=== PATIENT | male | born 1960 ===

== ENCOUNTER 2020-05-19 10:37 | Outpatient (REF) | payer BC, SELFPAY ==
[2020-05-19 12:22] LABS: Blood Urea Nitrogen 22 mg/dL (9-16); Cholesterol 201 mg/dL; Estimated Glomerular Filt Rate > 60; Glucose Fasting 96 mg/dL (60-99); HDL Cholesterol 49 mg/dL; LDL Cholesterol Calculated 127 mg/dl; Triglycerides 128 mg/dL
[2020-05-19 12:48] LABS: Estimated Average Glucose 111 mg/dL; Hemoglobin A1c % 5.5 %
[2020-05-19 13:16] LABS: Reflex LDLD? No
== END 2020-05-19 10:38 | disposition home or self-care (01) ==
LOC: HO.LNP 10:37
PROVIDERS: Visit Provider Internal Medicine
DX: R79.89 Other specified abnormal findings of blood chemistry (principal); R73.03 Prediabetes; I70.0 Atherosclerosis of aorta
CPT/HCPCS: 80061; 82565; 82947; 83036; 84520

== ENCOUNTER 2020-05-19 10:37 | Outpatient (REF) | payer BC, SELFPAY | END 2020-05-19 10:38 | disposition home or self-care (01) | LOC: HO.LNP 10:37 | PROVIDERS: PCP Internal Medicine; Visit Provider Internal Medicine | DX: Z13.89 Encounter for screening for other disorder (principal) ==

== ENCOUNTER 2020-11-17 10:39 | Outpatient (REF) | payer BC, SELFPAY ==
[2020-11-17 10:44] LABS: MANUAL DIFF FLAG NO
[2020-11-17 10:54] LABS: Basophils Percent Auto 0.4 % (0-2); Eosinophils Absolute Auto 0.1 X10*3/uL (0.0-0.4); Eosinophils Percent Auto 1.6 % (0-4); Hematocrit 46.7 % (42-52); Hemoglobin 15.2 g/dl (14.0-18.0); Imm Gran Abs Auto 0.02 X10*3/uL (0.00-0.03); Imm Gran Pct Auto 0.3 % (0.0-0.4); Lymphocytes Absolute Auto 2.4 X10*3/uL (1.2-4.9); Lymphocytes Percent Auto 34.1 % (20-40); Mean Corpuscular HGB Conc 32.5 g/dl (31.0-36.0); Mean Corpuscular Volume 89.1 fL (80-98); Mean Platelet Volume 10.9 fL (9.4-12.4); Monocytes Absolute Auto 0.6 X10*3/uL (0.1-1.2); Monocytes Percent Auto 8.1 % (2-11); Neutrophils Absolute Auto 3.9 X10*3/uL (2.0-8.3); Neutrophils Percent Auto 55.5 % (45-73); Platelet Count 235 X10*3/uL (160-400); Red Blood Count 5.24 X10*6/uL (4.60-5.80)
[2020-11-17 11:18] LABS: Appearance Urine CLEAR; Color Urine YELLOW; Glucose Urine UA NEG (NEG); Leukocyte Esterase Urine NEG (NEG); Nitrite Urine NEG (NEG); Specific Gravity - Urine 1.025 (1.005-1.025); Urine Blood TRACE (NEG); Urine Ketones NEG (NEG); Urine Protein NEG (NEG-TRACE)
[2020-11-17 11:34] LABS: Alanine Aminotransferase 23 U/L (0-40); Albumin Level 4.5 g/dL (3.5-5.0); Alkaline Phosphatase 53 U/L (39-117); Anion Gap 13 (12-20); Aspartate Amino Transferase 20 U/L (5-37); Bilirubin Total 0.7 mg/dL (0.0-1.0); Blood Urea Nitrogen 30 mg/dL (9-16); Calcium 9.4 mg/dL (8.4-10.2); Carbon Dioxide 26 mmol/L (22-29); Chloride 105 mmol/L (96-108); Cholesterol 222 mg/dL; Estimated Glomerular Filt Rate 54; Glucose Fasting 101 mg/dL (60-99); HDL Cholesterol 51 mg/dL; LDL Cholesterol Calculated 151 mg/dl; Potassium 4.1 mmol/L (3.3-5.1); Sodium 140 mmol/L (135-145); Total Protein 6.9 g/dL (6.5-8.0); Triglycerides 102 mg/dL
[2020-11-17 11:48] LABS: Estimated Average Glucose 114 mg/dL; Hemoglobin A1c % 5.6 %
[2020-11-17 11:57] LABS: Creatinine Urine 223.88 mg/dL
[2020-11-17 12:13] LABS: RBC Urine 0-2 /HPF (0); WBC Urine 0-2 /HPF (0-4)
[2020-11-17 12:25] LABS: Reflex LDLD? No
[2020-11-17 12:40] LABS: PSA,Total (Free>4and<10) 2.02 ng/mL (0.00-4.00)
== END 2020-11-17 10:40 | disposition home or self-care (01) ==
LOC: HO.LNP 10:39
PROVIDERS: Visit Provider Internal Medicine
DX: Z00.00 Encounter for general adult medical examination without abnormal findings (principal); Z12.5 Encounter for screening for malignant neoplasm of prostate; I10 Essential (primary) hypertension; R73.03 Prediabetes
CPT/HCPCS: 80053; 80061; 81001; 81003; 82043; 83036; 84153; 85025

== ENCOUNTER 2021-01-26 10:47 | Outpatient (REF) | payer BC, SELFPAY ==
[2021-01-26 11:23] LABS: Blood Urea Nitrogen 24 mg/dL (9-16); Estimated Glomerular Filt Rate 57
== END 2021-01-26 10:48 | disposition home or self-care (01) ==
LOC: HO.LNP 10:47
PROVIDERS: PCP Internal Medicine; Visit Provider Internal Medicine
DX: R79.9 Abnormal finding of blood chemistry, unspecified (principal)
CPT/HCPCS: 82565; 84520

== ENCOUNTER 2021-05-03 10:42 | Outpatient (REF) | payer BC, SELFPAY ==
[2021-05-03 11:02] LABS: Blood Urea Nitrogen 22 mg/dL (9-16); Estimated Glomerular Filt Rate 59
== END 2021-05-03 10:43 | disposition home or self-care (01) ==
LOC: HO.LNP 10:42
PROVIDERS: Visit Provider Internal Medicine
DX: R79.89 Other specified abnormal findings of blood chemistry (principal)
CPT/HCPCS: 82565; 84520

== ENCOUNTER 2021-11-29 11:59 | Outpatient (REF) | payer BC, SELFPAY ==
[2021-11-29 12:03] LABS: MANUAL DIFF FLAG NO
[2021-11-29 12:30] LABS: Basophils Percent Auto 0.5 % (0-2); Eosinophils Absolute Auto 0.2 X10*3/uL (0.0-0.4); Hematocrit 45.2 % (42.0-52.0); Hemoglobin 14.8 g/dl (14.0-18.0); Imm Gran Abs Auto 0.03 X10*3/uL (0.00-0.03); Imm Gran Pct Auto 0.4 % (0.0-0.4); Lymphocytes Absolute Auto 2.7 X10*3/uL (1.2-4.9); Lymphocytes Percent Auto 36.4 % (20-40); Mean Corpuscular HGB Conc 32.7 g/dl (31.0-36.0); Mean Corpuscular Hemoglobin 29.2 pg (27.0-33.0); Mean Corpuscular Volume 89.2 fL (80.0-98.0); Monocytes Absolute Auto 0.7 X10*3/uL (0.1-1.2); Monocytes Percent Auto 9.2 % (2-11); Neutrophils Absolute Auto 3.9 x10*3/uL (2.0-8.3); Neutrophils Percent Auto 51.5 % (45-73); Platelet Count 224 X10*3/uL (160-400); Red Blood Count 5.07 X10*6/uL (4.60-5.80); Red Cell Distribution Width 12.6 % (11.0-16.0); White Blood Count 7.5 X10*3/uL (4.8-10.8)
[2021-11-29 12:33] LABS: Appearance Urine Clear; Color Urine Yellow; Glucose Urine UA Negative (Negative); Leukocyte Esterase Urine Negative (Negative); Nitrite Urine Negative (Negative); Urine Blood Negative (Negative); Urine Ketones Negative (Negative); Urine Protein Trace mg/dL (Neg-Trace)
[2021-11-29 12:41] LABS: Alanine Aminotransferase 28 U/L (0-40); Albumin Level 4.4 g/dL (3.5-5.0); Alkaline Phosphatase 55 U/L (39-117); Anion Gap 16 (12-20); Aspartate Amino Transferase 25 U/L (5-37); Bilirubin Total 0.4 mg/dL (0.0-1.0); Blood Urea Nitrogen 31 mg/dL (9-16); Carbon Dioxide 24 mmol/L (22-29); Chloride 105 mmol/L (96-108); Cholesterol 198 mg/dL; Estimated Glomerular Filt Rate 58; Glucose Fasting 106 mg/dL (60-99); HDL Cholesterol 52 mg/dL; LDL Cholesterol Calculated 126 mg/dl; Potassium 4.1 mmol/L (3.3-5.1); Sodium 141 mmol/L (135-145); Triglycerides 101 mg/dL
[2021-11-29 12:42] LABS: Bacteria Urine None Seen (None Seen); Hyaline Casts Urine 0-2 /LPF (0-2); RBC Urine 0-2 /HPF (0-2); Squamous Epithelial Cell Urine 0-2 /HPF (0-2); WBC Urine 0-5 /HPF (0-5)
[2021-11-29 12:47] LABS: Estimated Average Glucose 117 mg/dL; Hemoglobin A1c % 5.7 %
[2021-11-29 13:53] LABS: Creatinine Urine 135.29 mg/dL; Microalbum/Creatinine Ratio Ur 13.3 ug/mg cr
== END 2021-11-29 12:00 | disposition home or self-care (01) ==
LOC: HO.LNP 11:59
PROVIDERS: Visit Provider Internal Medicine
DX: Z00.00 Encounter for general adult medical examination without abnormal findings (principal); Z12.5 Encounter for screening for malignant neoplasm of prostate; I10 Essential (primary) hypertension; R73.03 Prediabetes; I70.0 Atherosclerosis of aorta
CPT/HCPCS: 80053; 80061; 81001; 82043; 83036; 84153; 85025

== ENCOUNTER 2022-01-06 10:19 | Outpatient (REF) | payer BC, SELFPAY ==
[2022-01-06 10:44] LABS: Blood Urea Nitrogen 21 mg/dL (9-16); Estimated Glomerular Filt Rate > 60
== END 2022-01-06 10:20 | disposition home or self-care (01) ==
LOC: HO.LNP 10:19
PROVIDERS: Visit Provider Internal Medicine
DX: R79.9 Abnormal finding of blood chemistry, unspecified (principal)
CPT/HCPCS: 82565; 84520

== ENCOUNTER 2022-03-11 10:22 | Outpatient (REF) | payer BC, SELFPAY ==
[2022-03-11 11:10] LABS: Estimated Average Glucose 123 mg/dL; Hemoglobin A1c % 5.9 %
[2022-03-11 11:46] LABS: Alanine Aminotransferase 31 U/L (0-40); Albumin Level 4.4 g/dL (3.5-5.0); Alkaline Phosphatase 59 U/L (39-117); Aspartate Amino Transferase 22 U/L (5-37); Bilirubin Direct 0.2 mg/dL (0.0-0.5); Bilirubin Total 0.7 mg/dL (0.0-1.0); Cholesterol 146 mg/dL; Glucose Fasting 104 mg/dL (60-99); HDL Cholesterol 49 mg/dL; LDL Cholesterol Calculated 81 mg/dl; Triglycerides 81 mg/dL
== END 2022-03-11 10:23 | disposition home or self-care (01) ==
LOC: HO.LNP 10:22
PROVIDERS: PCP Internal Medicine; Visit Provider Internal Medicine
DX: R73.09 Other abnormal glucose (principal); I70.0 Atherosclerosis of aorta
CPT/HCPCS: 80061; 80076; 82947; 83036

== ENCOUNTER 2022-12-06 11:02 | Outpatient (REF) | payer BC, SELFPAY | END 2022-12-06 11:03 | disposition home or self-care (01) | LOC: HO.LNP 11:02 | PROVIDERS: Visit Provider Internal Medicine | DX: Z00.00 Encounter for general adult medical examination without abnormal findings (principal); I10 Essential (primary) hypertension; R73.03 Prediabetes; I70.0 Atherosclerosis of aorta; Z12.5 Encounter for screening for malignant neoplasm of prostate | CPT/HCPCS: 80053; 80061; 81001; 82043; 82570; 83036; 84153; 85025 ==

== ENCOUNTER 2023-02-10 10:56 | Outpatient (REF) | payer BC, SELFPAY ==
[2023-02-10 11:18] LABS: Blood Urea Nitrogen 28 mg/dL (9-16)
== END 2023-02-10 10:57 | disposition home or self-care (01) ==
LOC: HO.LNP 10:56
PROVIDERS: Visit Provider Internal Medicine
DX: R79.9 Abnormal finding of blood chemistry, unspecified (principal)
CPT/HCPCS: 84520

== ENCOUNTER 2023-04-14 08:40 | Outpatient (REF) | payer BC, SELFPAY ==
[2023-04-14 09:48] LABS: Blood Urea Nitrogen 23 mg/dL (9-16); Estimated Glomerular Filt Rate > 60
== END 2023-04-14 08:41 | disposition home or self-care (01) ==
LOC: HO.LAB 08:40
PROVIDERS: PCP Internal Medicine; Visit Provider Internal Medicine
DX: R79.9 Abnormal finding of blood chemistry, unspecified (principal)
CPT/HCPCS: 36415; 82565; 84520

== ENCOUNTER 2023-12-12 10:53 | Outpatient (REF) | payer BC, SELFPAY ==
[2023-12-12 10:58] LABS: MANUAL DIFF FLAG NO
[2023-12-12 11:04] LABS: Appearance Urine Clear; Basophils Percent Auto 0.3 % (0-2); Color Urine Yellow; Eosinophils Absolute Auto 0.2 X10*3/uL (0.0-0.4); Eosinophils Percent Auto 2.4 % (0-4); Glucose Urine UA Negative (Negative); Hematocrit 43.6 % (42.0-52.0); Hemoglobin 14.4 g/dl (14.0-18.0); Imm Gran Abs Auto 0.02 X10*3/uL (0.00-0.03); Imm Gran Pct Auto 0.3 % (0.0-0.4); Leukocyte Esterase Urine Negative (Negative); Lymphocytes Absolute Auto 2.2 X10*3/uL (1.2-4.9); Lymphocytes Percent Auto 29.3 % (20-40); Mean Corpuscular Hemoglobin 29.3 pg (27.0-33.0); Mean Corpuscular Volume 88.8 fL (80.0-98.0); Mean Platelet Volume 10.7 fL (9.4-12.4); Monocytes Absolute Auto 0.6 X10*3/uL (0.1-1.2); Monocytes Percent Auto 7.6 % (2-11); Neutrophils Absolute Auto 4.5 x10*3/uL (2.0-8.3); Neutrophils Percent Auto 60.1 % (45-73); Nitrite Urine Negative (Negative); PH 5.5 (5.0-9.0); Platelet Count 210 X10*3/uL (160-400); Red Blood Count 4.91 X10*6/uL (4.60-5.80); Red Cell Distribution Width 12.5 % (11.0-16.0); Urine Blood Negative (Negative); Urine Ketones Negative (Negative); Urine Protein Trace mg/dL (Neg-Trace); White Blood Count 7.5 X10*3/uL (4.8-10.8)
[2023-12-12 11:07] LABS: Bacteria Urine None Seen (None Seen); Hyaline Casts Urine 0-2 /LPF (0-2); RBC Urine 0-2 /HPF (0-2); Squamous Epithelial Cell Urine 0-2 /HPF (0-2); WBC Urine 0-5 /HPF (0-5)
[2023-12-12 11:21] LABS: Estimated Average Glucose 114 mg/dL; Hemoglobin A1C 139.2424 umol/L; Hemoglobin A1c % 5.6 % (<6.0); Total Hemoglobin (HGBA1C) 3713.7977 umol/L
[2023-12-12 11:44] LABS: Alanine Aminotransferase 30 U/L (0-40); Albumin Level 4.3 g/dL (3.5-5.0); Alkaline Phosphatase 51 U/L (39-117); Anion Gap 10 (12-20); Aspartate Amino Transferase 25 U/L (5-37); Bilirubin Total 0.6 mg/dL (0.0-1.0); Blood Urea Nitrogen 25 mg/dL (9-16); Calcium 9.3 mg/dL (8.4-10.2); Carbon Dioxide 29 mmol/L (22-29); Chloride 106 mmol/L (96-108); Cholesterol 203 mg/dL (<200); Estimated Glomerular Filt Rate 55; Glucose Fasting 106 mg/dL (60-99); HDL Cholesterol 52 mg/dL (>40); LDL Cholesterol Calculated 132 mg/dL (<100); Potassium 4.2 mmol/L (3.3-5.1); Sodium 141 mmol/L (135-145); Triglycerides 99 mg/dL (<150)
[2023-12-12 12:17] LABS: Creatinine Urine 176.07 mg/dL; Microalbum/Creatinine Ratio Ur 46.5 ug/mg cr (<30)
== END 2023-12-12 10:54 | disposition home or self-care (01) ==
LOC: HO.LNP 10:53
PROVIDERS: Visit Provider Internal Medicine
DX: Z00.00 Encounter for general adult medical examination without abnormal findings (principal); I10 Essential (primary) hypertension; R73.09 Other abnormal glucose; Z12.5 Encounter for screening for malignant neoplasm of prostate
CPT/HCPCS: 80053; 80061; 81001; 82043; 82570; 83036; 84153; 85025

== ENCOUNTER 2024-01-09 10:23 | Outpatient (REF) | payer BC, SELFPAY ==
--- NOTE | ~2024-01-09 | US_ITS ---
EXAMINATION: US EXTRACRANIAL CAROTID DUPLEX, BILATERAL CLINICAL INFORMATION: Aortic atherosclerosis COMPARISON: None available. TECHNIQUE: Real-time ultrasound and Doppler techniques (integrating B-mode 2-D vascular images, Doppler spectral analysis and color-flow Doppler imaging) were utilized to interrogate the extracranial carotid arteries, the vertebral arteries and proximal subclavian arteries bilaterally. The degree of stenosis is determined by criteria similar to NASCET. FINDINGS: Right Side: 1. There is no significant atherosclerotic plaque seen in the bifurcation/proximal ICA region. 2. The common carotid artery PSV proximally is 102 cm/s and distally 96 cm/s. 3. The proximal internal carotid artery velocities are 65.2 cm/s systolic and 26.1 cm/s diastolic. 4. The proximal external carotid artery PSV is 95.3 cm/s. 5. The vertebral artery shows antegrade flow. 6. The subclavian artery waveforms are normal. Left Side: 1. There is no significant atherosclerotic plaque seen in the bifurcation/proximal ICA region. 2. The common carotid artery PSV proximally is 136 cm/s and distally 91.7 cm/s. 3. The proximal internal carotid artery velocities are 73.0 cm/s systolic and 25.8 cm/s diastolic. 4. The proximal external carotid artery PSV is 98.1 cm/s. 5. The vertebral artery shows antegrade flow. 6. The subclavian artery waveforms are normal. US/US carotid duplex BI IMPRESSION: 1. RIGHT: Normal right internal carotid artery without atherosclerotic plaque or hemodynamically significant stenosis. 2. LEFT: Normal left internal carotid artery without atherosclerotic plaque or hemodynamically significant stenosis. Electronically signed by: Sy Dumont MD 02/01/2024 03:52 PM EST
== END 2024-01-09 10:24 | disposition home or self-care (01) ==
LOC: HO.US 10:23
PROVIDERS: PCP Internal Medicine; Visit Provider Internal Medicine
DX: I70.0 Atherosclerosis of aorta (principal)
CPT/HCPCS: 93880

== ENCOUNTER 2024-05-02 14:55 | Outpatient (REF) | payer BC, SELFPAY ==
--- OUTSIDE RECORDS SUMMARY | 2024-05-02 19:31 | XMS_ITS | Patient Health Record ---
Author Organization [facility] Address [address] [place] [address] Care Team Providers Care Architecture Consultant Name Role Phone Alexandrea LOMELI, Selwyn Primary Care Provider Jany Chaudhari Unavailable [phone] Elias Partida Unavailable [phone] Allergies No Known Allergies Results Component Value Reference Range Notes X ray : Foot, right 3V Reviewed date:02/14/2024 05:57:28 PM Interpretation:See Examination above Performing Lab: Notes/Report: See Examination above Reason For Referral Diagnosis 1 Other viral warts (B 07.8) Diagnosis 2 Pain in right foot ( M79.671) Referring Provider First Name Selwyn Referring Provider Last Name Alexandrea [facility] Referred Provider Elias Partida Referred Address [address] [place], [place],[address], Referred Provider Specialty Podiatry Referral Priority Routine Diagnosis 1 Gout of right foot ( M10.9) Diagnosis 2 Essential hypertensi on (I10) Diagnosis 3 Plantar flexed metat arsal bone of left foot (M21.6X2) Diagnosis 4 Arthritis (M19.90) Diagnosis 5 Other viral warts (B 07.8) Diagnosis 6 Pain in right foot ( M79.671) Diagnosis 7 Pain in left ankle a nd joints of left foot (M25.572) Diagnosis 8 Pain in joint involv ing right ankle and foot (M25.571) Diagnosis 9 Bursitis of intermet atarsal bursa of left foot (M77.52) Diagnosis 10 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) Referring Provider First Name Selwyn Referring Provider Last Name Alexandrea Referred Organization [facility] Referred Provider Jany Nolasco Referred Address [address] [facility] [place],[address],[place] Referred Provider Specialty Podiatry Referral Priority Routine Medications Medication SIG (Take, Route, Frequency, Duration) Notes Start Date End Date Status Atorvastatin Calcium Active Valsartan-hydroCHLOROthiazi de 160-12.5 MG (Prior Auth#:[id number]) Oral for 30 Unknown Valsartan Active Carvedilol Active Atorvastatin Calcium Active Valsartan-hydroCHLOROthiazi de 320-12.5 MG 1 tablet Orally Once a day Active Carvedilol Active Social History Tobacco Use: Social History Observation Description Date Details (start date - stop date) Never Smoker NA - NA Tobacco Use/Smoking Question Answer Notes Are you a: nonsmoker Additional Findings: Tobacco Non-User Current no n-smoker Alcohol Screen Question Answer Notes Did you have a drink containing alcohol in the p ast year? Yes Points 0 Interpretation Negative Tobacco use other than smoking: Question Answer Notes Are you an other tobacco user? No Problems Problem Type SNOMED Code ICD Code Onset Dates Problem Status W/U Status Risk Notes Problem 6066687 Arthritis (M19.90) Active confirmed Problem 789690849 Plantar flexed metatarsal bone of left foot (M21.6X2) Active confirmed Problem Gout (62191739) Gout of right foot (M10.9) Active confirmed Rx drug management (4) Problem Essential hypertension (88664225) Essential hypertension (I10) Active confirmed Vital Signs Blood pressure diastolic 70 mm Hg 04/04/2024 Height 0xr57aj in 04/04/2024 Blood pressure systolic 122 mm Hg 04/04/2024 Weight 224 lbs 04/04/2024 BMI 31.24 kg/m2 04/04/2024 Procedures Procedure Date Ordered Date Performed Result Body Sit e , R4224-OQHHX/INJECT, JOINT/BURSA 03/12/2024 N/A Encounters Encounter Location Date Provider Diagnosis [address] [place] [id number] 02/14/2024 Jany Nolasco Pain in joint involving right ankle and foot M25.571 ; Gout of right foot M10.9 ; Pain in joint involving left ankle and foot M25.572 and Closed fracture of sesamoid bone of right foot, initial encounter S92.811A [facility] [address] 03/12/2024 Jany Black Pain in left ankle a nd joints of left foot M25.572 ; Arthritis M19.90 ; Plantar flexed metatarsal bone of left foot M21.6X2 ; 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 M1A.0720 and Bursitis of intermetatarsal bursa of left foot M77.[address] [facility] [address] 04/04/2024 Jany Black Pain in left ankle a nd joints of left foot M25.572 ; Arthritis M19.90 ; Plantar flexed metatarsal bone of left foot M21.6X2 ; 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 M1A.0720 and Bursitis of intermetatarsal bursa of left foot M77.[address] [address] 02/12/2024 Elias Partida [facility] [address] [address] 03/12/2024 Jany Black [address] [address] 03/12/2024 Jany Black Assessments Encounter Date Diagnosis (ICD Code) Assessment Notes Treatment Notes Treatment Clinical Notes Section Notes 02/14/2024 Gout of right foot (ICD-10 - M10.9) Rx drug management (4) Patient Educated with: GOUT.pdf (GOUT.pdf) Patient Educated with: LOW PURINE DIET.pdf (LOW PURINE DIET.pdf) 02/14/2024 Pain in joint involving right ankle and foot (ICD-10 - M25.571) 03/12/2024 Pain in left ankle and joints of left foot (ICD-10 - M25.572) b 03/12/2024 Arthritis (ICD-10 - M19.90) b 04/04/2024 Pain in left ankle and joints of left foot (ICD-10 - M25.572) 04/04/2024 Arthritis (ICD-10 - M19.90) 03/12/2024 Plantar flexed metatarsal bone of left foot (ICD-10 - M21.6X2) b 02/14/2024 Pain in joint involving left ankle and foot (ICD-10 - M25.572) 02/14/2024 Closed fracture of sesamoid bone of right foot, initial encounter (ICD-10 - S92.811A) 04/04/2024 Plantar flexed metatarsal bone of left foot (ICD-10 - M21.6X2) 03/12/2024 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 (ICD-10 - M1A.0720) b 04/04/2024 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 (ICD-10 - M1A.0720) 03/12/2024 Bursitis of intermetatarsal bursa of left foot (ICD-10 - M77.52) Patient Educated with: RICE THERAPY.pdf (RICE THERAPY.pdf) b 04/04/2024 Bursitis of intermetatarsal bursa of left foot (ICD-10 - M77.52) 02/14/2024 Other 03/12/2024 Other b Plan Of Treatment Pending Test Test Name Order Date , T1369-IHAJU/INJECT, JOINT/BURSA 0 03/12/2024 Insurance Providers Payer Name Payer Address Payer Phone Subscriber Number Group Number Insured Name Patient Relationship to Insured Coverage Start Date Coverage End Date [facility] [address] [place] [address] [phone] [id number] Gilson Osei Self - patient is the insured Medical (General) History Medical History History ICD Code High blood pressure Warts Measles Mumps Chicken pox Joint implants/screws covid-19 screws in wrist Surgical History Surgery Date(Month/Year) wrist surgery 1999 knee surgery 2011
--- OUTSIDE RECORDS SUMMARY | 2024-05-02 19:32 | XMS_ITS ---
Author Organization [facility] Address [address] [place] [address] Care Team Providers Care Fire Extinguisher Repairer Inspector Name Role Phone Selwyn Lechuga MD Primary Care Provider Nishi Nolasco, Jany Unavailable [phone] Allergies No Known Allergies REASON FOR VISIT Pcp-03/23, Foot pain Medications Medication SIG (Take, Route, Frequency, Duration) Notes Start Date End Date Status Atorvastatin Calcium Active Valsartan-hydroCHLOROthiazi de 160-12.5 MG (Prior Auth#:[id number]) Oral for 30 Unknown Atorvastatin Calcium Active Valsartan-hydroCHLOROthiazi de 320-12.5 MG 1 tablet Orally Once a day Active Carvedilol Active Valsartan Active Carvedilol Active Social History Tobacco Use: Social History Observation Description Date Details (start date - stop date) Never Smoker NA - NA Tobacco Use/Smoking Question Answer Notes Are you a: nonsmoker Additional Findings: Tobacco Non-User Current no n-smoker Tobacco use other than smoking: Question Answer Notes Are you an other tobacco user? 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 M1A.0720 and Bursitis of intermetatarsal bursa of left foot M77.52 Assessments Encounter Date Diagnosis (ICD Code) Assessment Notes Treatment Notes Treatment Clinical Notes Section Notes 04/04/2024 Pain in left ankle and joints of left foot (ICD-10 - M25.572) 04/04/2024 Arthritis (ICD-10 - M19.90) 04/04/2024 Plantar flexed metatarsal bone of left foot (ICD-10 - M21.6X2) 04/04/2024 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 (ICD-10 - M1A.0720) 04/04/2024 Bursitis of intermetatarsal bursa of left foot (ICD-10 - M77.52) Plan Of Treatment Next Appt Details Follow Up: prn, Reason: Progress Notes * Gilson MCPHERSON CDOB: (63 yo M)Acc No.[id number]:04/04/2024 Progress Notes Patient:?SARAYAKILGilson Provider:?Jany Nolasco DPM :1960???Age:63 Y???Sex:Male Jose Maria e:04/04/2024 Address:[address] [place], [place] [id number] Pcp:Selwyn Lechuga MD Subjective: * Chief Complaints: * ???Pcp-03/23Foot pain * HPI: ???Foot Pain:?Nature:?aching, swelling, tenderness, throbbing.?Location:?, LEFT.?Duration:?2 month.?Onset:?sudden, unknown, denies trauma.?Course:?, improved, at 90 %.?Aggravated:?any pressure.?Treatments:?Rest/alter normal daily activity, 800mg Motrin, prednisone x 5 days, then 7 days, cortisone injection (1L).? * ROS:?General/Constitutional:?Nausea?denies.?Vomiting?denies.?Hunger Thirst?denies.?Loss appetite?denies.?Chills?denies.?Fatigue?denies.?Fever?denies.?Night Sweats?denies.?Unexplained weight loss?denies.?Unexplained weight gain?denies.?HEENTM:?Dentures?denies.?Dizziness?denies.?Glasses/contacts?denies.?Retinopathy?de nies.?Blurred/double vision?denies.?TMJ?denies.?Discharge/drainage?denies.?Implants?denies.?Sore throat?denies.?Dental implants?denies.?Hard of hearing ?denies.?Difficulty chewing/swallowing/speaking?denies.?Nose bleeds?denies.?Sore mouth?denies.?Respiratory:?On Oxygen?denies.?Pneumonia/pleurisy?denies.?Bronchitis?denies.?Emphysema?denies.?C oughing?denies.?Cough blood?denies.?Shortness of breath?denies.?Wheezing?denies.?Cardiovascular:?Pacemaker?denies.?MVP?denies.?WPW?denies.?CHF?denies.?Heart attack?denies.?Septal defect?denies.?Rapid beat?denies.?Chest pain ?denies.?Atrial Fib.?denies.?Murmur/Palpitations?denies.?Gastrointestinal:?Hemorrhoids?denies.?Stomach/Abdominal pain?denies.?Dark blood stool?denies.?Irritable bowel ?denies.?Constipation?denies.?Diarrhea?denies.?Hematology:?Swelling?denies.?Clots?denies.?Varicose Veins?denies.?Bruising?denies.?Bleeding problem?denies.?Genitourinary:?Blood urine?denies.?Frequent/Painfu/urination/bladder control?denies.?Kidney stones?denies.?Infection (UTI)?denies.?Nephropathy?denies.?sex trans dis (STD)?denies.?Prostate?denies.?Musculoskeletal:?Hammertoes?denies.?Bunions?denies.?Back Pain?denies.?Muscle Cramps/ Resting?denies.?Muscle cramps / walking?denies.?Generalized aches and pains?denies.?Weakness?denies.?Integ.:?Bello?denies.?Scars?denies.?Corns/calluses?denies.?Ingrown nails?denies.?Painful nails?denies.?Open Sores?denies.?Rashes?denies.?Neurologic:?Difficulty sleeping?denies.?Brain disorder?denies.?Numbness?denies.?Balance trouble?denies.?Confusion?denies.?Fainting/blackouts?denies.?Tingling?denies.?Tr emors?denies.? * Medical History:? * Surgical History:?wrist surg parul 2000knee surgery 2012 * Hospitalization/Major Diagno stic Procedure:?Denies Past Hospitalization * Family History:?Mother: dece ased, diagnosed with Diabetic - NIDDM, Unspecified essential hypertension.?Father: alive, diagnosed with Unspecified essential hypertension.? * Social History:?Tobacco Use:?Tobacco Use/Smoking?Are you a:?nonsmoker ?Additional Findings: Tobacco Non-User?Current non-smoker ?Tobacco use other than smoking?Are you an other tobacco user??No ???Miscellaneous:?Caffeine: yes, frequency:. ?Children: yes, 2. ?Exercise: no. ?Marital status: . 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 * Medications:?TakingValsartan -hydroCHLOROthiazide 320-12.5 MG Tablet 1 tablet Orally Once a day Carvedilol Atorvastatin Calcium Valsartan Carvedilol Atorvastatin Calcium Taking Valsartan-hydroCHLOROthiazide 320-12.5 MG Tablet 1 tablet Orally Once a day Taking Carvedilol Taking Atorvastatin Calcium Taking Valsartan Taking Carvedilol Taking Atorvastatin Calcium UnknownValsartan-hydroCHLOROthiazide 160-12.5 MG Tablet (Prior Auth#:[id number]) Oral Medication List reviewed and reconciled with the patientUnknown Valsartan-hydroCHLOROthiazide 160-12.5 MG Tablet (Prior Auth#:[id number]) Oral Medication List reviewed and reconciled with the patient * Allergies:?N.K.D.A.yes[Aller gies Verified] Objective: * Vitals:?Ht: 6py40nv, Wt:224, BMI:31.24, Shoe size: 10.5-11, BP:122/70mm Hg, Ht- cm: 180.34 cm, Wt-k.61 kg. * Examination: ???General Examination: ?GENERAL APPEARANCE:?Reveals a pleasant, alert, well nourished, well- developed, well hydrated individual, who demonstrates proper attention to hygiene/body habitus, and is in no acute distress, Pt serves as own historian for office visit today.?ORIENTED:?person, place, and time.?Orthopedic: ?MUSCLE STRENGTH:?5/5 all groups in a symmetrical fashion, B/L.?GAIT ABNORMALITY:? antalgic.?BUNION:? (+) Pain on palpation dorsal medial exosotosis?,mild??inflammation present, pain at end ROM no guarding noted (-) calor, AT 90 % less.?DIGITAL DEFORMITIES:?Digital contracture, PIPJ, 2-5 B/L, incompl-reducible with WB, or to push-up test, no over, nor underlapping.?FOOTWEAR:?innersoles show excessive wear at 1st MTPJ left.?Dermatologic: ?SKIN FINDINGS:?Skin shows sign(s) of,NO??inflammation (-) calor? (-)erythema.?Vascular: ?DP PULSES (B):?2/4, B/L.?PT PULSES (B):?2/4, B/L.?CAPILLARY FILL TIME:?immediate, all digits, B/L.?TROPHIC CONDITION-TEXTURE/ELASTICITY/TURGOR/HAIR GROWTH (B):?normal, B/L.?TEMPERTURE GRADIENT (C):?normal, warm to cool, proximal to distal, B/L, B/L.?PIGMENTATION:?normal, B/L.?EDEMA (C):?absent, B/L.?Neurological: ?SENSORY:?Neurological exam reveals intact sensorium, pain sensation normal, vibration sensation intact, pinprick sensation is normal in the lower extremities, Pt denies, anesthesia, burning, paresthesia, tingling, B/L.?TINEL'S COMPRESSION:?Negative tarsal tunnel, miguel pedis, and medial calcaneal nerves.? 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 Plan: * Treatment: * Procedure Codes:? * Preventive Medicine:? ??Counseling:?Discussion:?-12: Office or other outpatient visit for the evaluation and management of an established patient, which required a medically appropriate history and/or examination and STRAIGHTFORWARD level of MEDICAL DECISION MAKING, 1 SELF-LIMITED OR MINOR PROBLEM, MINIMAL- NO AMOUNT/COMPLEXITY OF DATA TO BE REVIEWED/ANALYZED, AND MINIMAL RISK OF COMPLICATION/MORBIDITY. The visit on the day of the encounter encompassed interpreting the data and educating the patient as to the nature of their condition, treatment options available according to their individual PMH, meds, allergies, and overall health/living conditions, as well as any potential risks or complications that may occur from a failure to adhere to, and participate in, the recommended course of therapy. The discussion included a complete verbal, and/or written explanation of the examination results, any x-rays taken, the proposed diagnosis, and outline of the treatment plan. A schedule for future care needs was also explained. The patient verbalized an understanding of the instructions at this time and agreed to be an active participant in their treatment. If the patient should think of any questions or concerns after the visit, I have encouraged the patient to call the office, Patients podiatric issue has improved, they should call the office with any future issues or concerns.? * Follow Up:?prn * Images: * Sign off status: Completed true * Provider:?Jany Nolasco DPM Date:?2024 Generated for Kacie paniagua/Junaid/Claude on:?05/02/2024 02:30 PM EST History and Physical Notes * HPI (History of Present Illness) Category Sub-Category Detail Notes Category Not es Foot Pain Nature: aching, swelling, tenderness , throbbing Location: , LEFT Duration: 2 month Onset: sudden, unknown, den ies trauma Course: , improved, at 90 % Aggravated: any pressure Treatments: Rest/alter normal da amaya activity, 800mg Motrin, prednisone x 5 days, then 7 days, cortisone injection (1L) Examination Category Sub-Category Detail Notes Category Not es Neurological SENSORY: Neurological exa m reveals intact sensorium, pain sensation normal, vibration sensation intact, pinprick sensation is normal in the lower extremities, Pt denies, anesthesia, burning, paresthesia, tingling, B/L TINEL'S COMPRESSION: Negative tarsal alex edith, miguel pedis, and medial calcaneal nerves Dermatologic SKIN FINDINGS: Skin shows sign( s) of,NO inflammation (-) calor (-)erythema Orthopedic GAIT ABNORMALITY: antalgic BUNION: (+) Pain on palpatio n dorsal medial exosotosis ,mild inflammation present, pain at end ROM no guarding noted (-) calor, AT 90 % less FOOTWEAR: innersoles show exce ssive wear at 1st MTPJ left DIGITAL DEFORMITIES: Digital contracture , PIPJ, 2-5 B/L, incompl-reducible with WB, or to push-up test, no over, nor underlapping MUSCLE STRENGTH: 5/5 all groups in a symmetrical fashion, B/L General Examination GENERAL APPEARANCE: Reveals a pleasant, alert, well nourished, well-developed, well hydrated individual, who demonstrates proper attention to hygiene/body habitus, and is in no acute distress, Pt serves as own historian for office visit today ORIENTED: person, place, and t kristie Vascular DP PULSES (B): 2/4, B/L PT PULSES (B): 2/4, B/L CAPILLARY FILL TIME: immediate, all digi ts, B/L TEMPERTURE GRADIENT (C): normal, warm to cool, proximal to distal, B/L, B/L TROPHIC CONDITION-TEXTURE/ELASTICITY/TURGOR/HAIR GROWTH (B): normal, B/L EDEMA (C): absent, B/L PIGMENTATION: normal, B/L
--- OUTSIDE RECORDS SUMMARY | 2024-05-02 19:32 | XMS_ITS ---
Author Organization Selwyn Lechuga MD Address [address] [place] [phone] Care Team Providers Care Web Development Director Name Role Phone Selwyn Lechuga Primary Care Provider REASON FOR VISIT ins referral Encounters Encounter Location Date Provider Diagnosis Selwyn Lechuga MD [address] [facility] [address] [place] [phone] 03/12/2024 Selwyn Lechuga Plan Of Treatment Next Appt Details Provider Name:Selwyn Coley ier, 06/18/2024 07:15:00 AM, [address] [place] [address], [address] [place] [address], [phone], Provider Name:Selwyn Coley ier, 06/25/2024 09:00:00 AM, [address] [place] [address], [address], [phone], Provider Name:Selwyn stephens, 12/12/2024 07:00:00 AM, [address] [place] [address], [address], [phone], Provider Name:Selwyn stephens, 12/19/2024 08:00:00 AM, [address], [address], [place], [place], [phone], Progress Notes * SARAYAKILGilson CDOB: (63 yo M)Acc No.[id number]:03/12/2024 Patient:?Gilson Osei :1960???Age:63 Y???Sex:Male Address:[address] [place] [address], [phone] * true * Date:? Generated for Kacie paniagua/Junaid/eTransmitting on:?05/02/2024 07:31 PM EST
--- OUTSIDE RECORDS SUMMARY | 2024-05-02 19:32 | XMS_ITS ---
Author Organization Selwyn Lechuga MD Address [address] [place], [place] [id number] Care Team Providers Care Self Storage Manager Name Role Phone Selwyn Lechuga Primary Care Provider Allergies Allergen (clinical drug ingredient) Drug/Non Drug Allergy documented on EMR Reaction Allergy Type Onset Date Status Lisinopril cough Drug Allergy Active REASON FOR VISIT still had some pain in left foot Medications Medication SIG (Take, Route, Frequency, Duration) Notes Start Date End Date Status Ibuprofen 800 MG 1 tablet with food o r milk as needed Orally every 8 hrs for 30 days 01/15/2024 Active predniSONE 10 MG 1 tablet with food o r milk Orally 4 tabs for 3 days,3tabs for 3 days, 2 tabs for 3 days, and 1 tab for 3 days for 14 days 07/05/2022 Not-Taking Flecainide Acetate 50 MG TAKE 3 TABLETS WITH OCCURRENCE OF ATRIAL FIBRILLATION Not-Taking Ibuprofen 200 MG 2 tablets as needed Orally every 6 hrs Not-Taking Cialis 5 MG 1 tablet as needed Orally Once a day for 30 day(s) 12/18/2023 Active Carvedilol 12.5 MG take 1 tablet by mera th twice a day with food for 90 days Orally Twice a day Active Omeprazole 20 MG 1 capsule Orally Onc e a day 04/28/2014 Active Valsartan-hydroCHLOROthi azide 320-12.5 MG TAKE 1 TABLET BY MOUTH EVERY DAY Active Atorvastatin Calcium 10 MG take 1 tablet by mouth every day for 30 days Orally Once a day for 90 days Active Albuterol Sulfate HFA 108 (90 Base) MCG/ACT 1 puff as needed Inhalation every 4 hrs for 30 days 07/05/2022 Active Flecainide Acetate 50 MG 3 tabs Orally f or a fib for one time for 1 days Active Problems Problem Type SNOMED Code ICD Code Onset Dates Problem Status W/U Status Risk Notes Problem [id number] Prostatism (N40.0) Active confirmed Vital Signs Blood pressure systolic 134 mm Hg 02/08/20 24 Blood pressure diastolic 76 mm Hg 024 Height 71.25 in 02/08/2024 Weight 222 lbs 02/08/2024 BMI 30.74 kg/m2 02/08/2024 weight is up 2 pounds since 02-01-24 Encounters Encounter Location Date Provider Diagnosis Selwyn Lechuga MD [address] [place] [address] [place] [phone] 02/08/2024 Selwyn Lechuga rubi Guzman M21.612 and Prostatism N40.0 Assessments Encounter Date Diagnosis (ICD Code) Assessment Notes Treatment Notes Treatment Clinical Notes Section Notes 02/08/2024 rubi Guzman (ICD-10 - M21.612) needs referral to dr wayne/ patiEnt will be calling to make his own appt. HIS APPT IS 03/05/24 AT 9AM, [facility] 02/08/2024 Prostatism (ICD-10 - N40.0) when he takes viagra sleeps through the night and his stream is better Plan Of Treatment Treatment Notes Assessment Notes rubi Guzman needs referral to dr wayne/ patiEnt will be calling to make his own appt. HIS APPT IS 03/05/24 AT 9AM, [facility] Prostatism when he takes viagra sleeps through the night and his stream is better Next Appt Details Provider Name:Selwyn stephens, 06/18/2024 07:15:00 AM, [address], [address], [place], [phone], Provider Name:Selwyn Coley ier, 06/25/2024 09:00:00 AM, [address], [address], [place], [phone], Provider Name:Selwyn Coley ier, 12/12/2024 07:00:00 AM, [address], [address], [place], [phone], Provider Name:Selwyn Coley ier, 12/19/2024 08:00:00 AM, [address], [address], [place], [phone], Progress Notes * Gilson MCPHERSON CDOB: (63 yo M)Acc No.[id number]:02/08/2024 Patient:?Gilson Mcpherson Provider:?Selwyn Lechuga MD :1960???Age:63 Y???Sex:Male Jose Maria e:02/08/2024 Address:[address] [place], [place] [phone] Subjective: * Chief Complaints: * ???Still had some pain in le ft foot * HPI: ???Symptom(s):? patient is a 63 yo male had been on prednisone again and is just a little better. had seen dr wayne in the past. still with pain in left foot. * ROS:?General/Constitutional:?Denies?Chills.?Denies?Fatigue.?Denies?Fever.?Denies?Headache.?ENT:?Patient denies?decreased sense of smell , any loss of taste , sore throat.?Denies?Sore throat.?Respiratory:?Denies?Cough.?Denies?Shortness of breath at rest.?Denies?Shortness of breath with exertion.?Gastrointestinal:?Denies?Diarrhea.?Denies?Nausea.?Musculoskeletal:?Patient denies?muscle aches.?Peripheral Vascular:?Patient denies?red and blue toes.? * Medical History:? * Surgical History:? * Hospitalization/Major Diagno stic Procedure:? * Medications:?TakingAlbuterol Sulfate HFA 108 (90 Base) MCG/ACT Aerosol Solution 1 puff as needed Inhalation every 4 hrsFlecainide Acetate 50 MG Tablet 3 tabs Orally for a fib for one timeAtorvastatin Calcium 10 MG Tablet take 1 tablet by mouth every day for 30 days Orally Once a dayCialis 5 MG Tablet 1 tablet as needed Orally Once a dayCarvedilol 12.5 MG Tablet take 1 tablet by mouth twice a day with food for 90 days Orally Twice a dayOmeprazole 20 MG Capsule Delayed Release 1 capsule Orally Once a dayValsartan-hydroCHLOROthiazide 320-12.5 MG Tablet TAKE 1 TABLET BY MOUTH EVERY DAY Ibuprofen 800 MG Tablet 1 tablet with food or milk as needed Orally every 8 hrsTaking Albuterol Sulfate HFA 108 (90 Base) MCG/ACT Aerosol Solution 1 puff as needed Inhalation every 4 hrsTaking Flecainide Acetate 50 MG Tablet 3 tabs Orally for a fib for one timeTaking Atorvastatin Calcium 10 MG Tablet take 1 tablet by mouth every day for 30 days Orally Once a dayTaking Cialis 5 MG Tablet 1 tablet as needed Orally Once a dayTaking Carvedilol 12.5 MG Tablet take 1 tablet by mouth twice a day with food for 90 days Orally Twice a dayTaking Omeprazole 20 MG Capsule Delayed Release 1 capsule Orally Once a dayTaking Valsartan-hydroCHLOROthiazide 320-12.5 MG Tablet TAKE 1 TABLET BY MOUTH EVERY DAY Taking Ibuprofen 800 MG Tablet 1 tablet with food or milk as needed Orally every 8 hrsNot-Taking/PRNpredniSONE 10 MG Tablet 1 tablet with food or milk Orally 4 tabs for 3 days,3tabs for 3 days, 2 tabs for 3 days, and 1 tab for 3 daysFlecainide Acetate 50 MG Tablet TAKE 3 TABLETS WITH OCCURRENCE OF ATRIAL FIBRILLATION Ibuprofen 200 MG Tablet 2 tablets as needed Orally every 6 hrsNot-Taking/PRN predniSONE 10 MG Tablet 1 tablet with food or milk Orally 4 tabs for 3 days,3tabs for 3 days, 2 tabs for 3 days, and 1 tab for 3 daysNot- Taking/PRN Flecainide Acetate 50 MG Tablet TAKE 3 TABLETS WITH OCCURRENCE OF ATRIAL FIBRILLATION Not-Taking/PRN Ibuprofen 200 MG Tablet 2 tablets as needed Orally every 6 hrsDiscontinuedpredniSONE 20 MG Tablet 2 tablets Orally Once a dayMedication List reviewed and reconciled with the patientDiscontinued predniSONE 20 MG Tablet 2 tablets Orally Once a dayMedication List reviewed and reconciled with the patient * Allergies:?Lisinopril: cough yes[Allergies Verified] Objective: * Vitals:?Ht: 71.25, Wt:222, B PR:30.74, BP:134/76 weight is up 2 pounds since 02-01-24. * Examination: ???General Examination: ?GENERAL APPEARANCE:?alert, well hydrated, in no distress.?EXTREMITIES:?with some swelling and tenderness over the metatarsal on the left foot.? Assessment: * Assessment: 1.?Bunion, left - M21.612 (P rimary)?2.?Prostatism - N40.0? Plan: * Treatment: 2.?Prostatism? Notes: when he takes viagra sleeps through the night and his stream is better?? * Procedure Codes:? * * Sign off status: Completed true * Provider:?Selwyn Lechuga MD Date:?1 04/10/2023 Generated for Kacie paniagua/Junaid/eTdeenasmitting on:?05/02/2024 07:31 PM EST History and Physical Notes * HPI (History of Present Illness) Category Sub-Category Detail Notes Category Not es Symptom(s) patient is a 63 yo male had been on prednisone again and is just a little better. had seen dr wayne in the past. still with pain in left foot Examination Category Sub-Category Detail Notes Category Not es General Examination GENERAL APPEARANCE: alert, w ell hydrated, in no distress EXTREMITIES: with some swelling a nd tenderness over the metatarsal on the left foot
--- OUTSIDE RECORDS SUMMARY | 2024-05-02 19:32 | XMS_ITS ---
Author Organization Selwyn Lechuga MD Address [address] [place], [place] [id number] Care Team Providers Care Sas Etl Developer Name Role Phone Selwyn Lechuga Primary Care Provider Allergies Allergen (clinical drug ingredient) Drug/Non Drug Allergy documented on EMR Reaction Allergy Type Onset Date Status Lisinopril cough Drug Allergy Active Results Component Value Reference Range Notes Uric Acid (Not yet reviewed by provider) Interpretation: Performing Lab:[facility], [address] [place] [id number] Notes/Report: Uric Acid 6.0 3.4-7.0 mg/dL REASON FOR VISIT left foot pain ? gout Medications Medication SIG (Take, Route, Frequency, Duration) Notes Start Date End Date Status Valsartan-hydroCHLOROthi azide 320-12.5 MG TAKE 1 TABLET BY MOUTH EVERY DAY Active Ibuprofen 800 MG TAKE 1 TABLET BY KALEB TH EVERY 8 HOURS WITH FOOD OR MILK NEEDED for 30 Active predniSONE 10 MG 1 tablet with food o r milk Orally 4 tabs for 3 days,3tabs for 3 days, 2 tabs for 3 days, and 1 tab for 3 days for 14 days 07/05/2022 Not-Taking Flecainide Acetate 50 MG TAKE 3 TABLETS WITH OCCURRENCE OF ATRIAL FIBRILLATION Not-Taking Ibuprofen 200 MG 2 tablets as needed Orally every 6 hrs Not-Taking Omeprazole 20 MG 1 capsule Orally Onc e a day 04/28/2014 Active Cialis 5 MG 1 tablet as needed Orally Once a day for 30 day(s) 12/18/2023 Active Carvedilol 12.5 MG take 1 tablet by kaleb th twice a day with food for 90 days Orally Twice a day Active Flecainide Acetate 50 MG 3 tabs Orally f or a fib for one time for 1 days Active Atorvastatin Calcium 10 MG take 1 tablet by mouth every day for 30 days Orally Once a day for 90 days Active Albuterol Sulfate HFA 108 (90 Base) MCG/ACT 1 puff as needed Inhalation every 4 hrs for 30 days 07/05/2022 Active Vital Signs Blood pressure systolic 132 mm Hg 05/03/19 25 Blood pressure diastolic 76 mm Hg 025 Height 71.25 in 05/02/2024 Weight 233 lbs 05/02/2024 BMI 32.27 kg/m2 05/02/2024 weight is up 11 pounds since 02-08-24 Encounters Encounter Location Date Provider Diagnosis Selwyn Lechuga MD [address] [place] [address] [place] [phone] 05/02/2024 Selwyn Lechuga Toe pain, left M79.675 Assessments Encounter Date Diagnosis (ICD Code) Assessment Notes Treatment Notes Treatment Clinical Notes Section Notes 05/02/2024 Toe pain, left (ICD-10 - M79.675) does not appear like gout to me but appears that he is getting a bunion Plan Of Treatment Treatment Notes Assessment Notes Toe pain, left does not appear like gout to me but appears that he is getting a bunion Pending Test Test Name Order Date Uric Acid 05/02/2024 Next Appt Details Provider Name:Selwyn stephens, 06/18/2024 07:15:00 AM, [address] [place] [address], Suite [facility], [place], [place], [phone], Provider Name:Selwyn stephens, 06/25/2024 09:00:00 AM, [address] [place] [address], Suite [facility], [place], [place], [phone], Provider Name:Selwyn Coley ier, 12/12/2024 07:00:00 AM, [address], [address], [place], [phone], Provider Name:Selwyn Coley ier, 12/19/2024 08:00:00 AM, [address], [address], [place], [phone], Progress Notes * Gilson MCPHERSON CDOB: (63 yo M)Acc No.[id number]:05/02/2024 Progress Notes Patient:?Gilson MCPHERSON C Provider:?Selwyn Lechuga MD :1960???Age:63 Y???Sex:Male Jose Maria e:05/02/2024 Address:[address] [place], [place] [phone] Subjective: * Chief Complaints: * ???1. Left foot pain ? gout. * HPI: ???Symptom(s):?patient is a 63 yo male here with complaint of pain in left first metatarsal. flared a few days ago. and started NSAID/ last time it lasted a month. 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 * ROS:?General/Constitutional:?Denies?Chills.?Denies?Fatigue.?Denies?Fever.?Denies?Headache.?ENT:?Patient denies?decreased sense of smell, any loss of taste, sore throat.?Respiratory:?Denies?Cough.?Denies?Shortness of breath at rest.?Denies?Shortness of breath with exertion.?Gastrointestinal:?Denies?Diarrhea.?Denies?Nausea.?Musculoskeletal:?Patient denies?muscle aches.?Peripheral Vascular:?Patient denies?red and blue toes.? * Medical History:?Colonosclop y 2012 neg due in 10 years, Back xray showed athersclerosis of aorta. discussed statins, Colonoscy 2022 negative. * Medications:?Taking Albutero l Sulfate HFA 108 (90 Base) MCG/ACT Aerosol Solution 1 puff as needed Inhalation every 4 hrs , Taking Flecainide Acetate 50 MG Tablet 3 tabs Orally for a fib for one time , Taking Atorvastatin Calcium 10 MG Tablet take 1 tablet by mouth every day for 30 days Orally Once a day , Taking Cialis 5 MG Tablet 1 tablet as needed Orally Once a day , Taking Carvedilol 12.5 MG Tablet take 1 tablet by mouth twice a day with food for 90 days Orally Twice a day , Taking Omeprazole 20 MG Capsule Delayed Release 1 capsule Orally Once a day , Taking Valsartan-hydroCHLOROthiazide 320-12.5 MG Tablet TAKE 1 TABLET BY MOUTH EVERY DAY , Taking Ibuprofen 800 MG Tablet TAKE 1 TABLET BY MOUTH EVERY 8 HOURS WITH FOOD OR MILK NEEDED , Not-Taking/PRN predniSONE 10 MG Tablet 1 tablet with food or milk Orally 4 tabs for 3 days,3tabs for 3 days, 2 tabs for 3 days, and 1 tab for 3 days , Not-Taking/PRN Flecainide Acetate 50 MG Tablet TAKE 3 TABLETS WITH OCCURRENCE OF ATRIAL FIBRILLATION , Not-Taking/PRN Ibuprofen 200 MG Tablet 2 tablets as needed Orally every 6 hrs , Medication List reviewed and reconciled with the patient * Allergies:?Lisinopril: cough . Objective: * Vitals:?Ht: 71.25, Wt: 233, BMI:32.27, BP:132/76, Wt-k.69. weight is up 11 pounds since 02-08-24. * Examination: ???General Examination: ?GENERAL APPEARANCE:?alert, well hydrated, in no distress.?EXTREMITIES:?abnormal with swelling of first metatarsal with minimal pain.? Assessment: * Assessment: 1.?Toe pain, left - M79.675 (Primary)??? Plan: * Treatment: * Procedure Codes:?67874 VENIP UNCT, ROUTINE* * * The named appointment provid er may or may not be the originator of this progress note, and it is not deemed complete until electronically signed by the appointment provider. Sign off status: Pending * Provider:?Selwyn Lechuga MD Date:?0 05/02/2024 Generated for Kacie paniagua/Junaid/Dimasitting on:?05/02/2024 07:32 PM EST History and Physical Notes * HPI (History of Present Illness) Category Sub-Category Detail Notes Category Not es Symptom(s) patient is a 63 yo male here with complaint of pain in left first metatarsal. flared a few days ago. and started NSAID/ last time it lasted a month. went to [facility] feed [facility] and got a cortisone shot and it was wonderful for a month Examination Category Sub-Category Detail Notes Category Not es General Examination GENERAL APPEARANCE: alert, w ell hydrated, in no distress EXTREMITIES: abnormal with swelli ng of first metatarsal with minimal pain
--- OUTSIDE RECORDS SUMMARY | 2024-05-02 19:32 | XMS_ITS ---
[facility] Address [address] [place] [address] Care Team Providers Care Grips Name Role Phone Selwyn Lechuga MD Primary Care Provider Nishi cleveland Jany Nolasco Unavailable [phone] Allergies No Known Allergies REASON FOR VISIT Foot pain Medications Medication SIG (Take, Route, Frequency, Duration) Notes Start Date End Date Status Atorvastatin Calcium Active Carvedilol Active Valsartan-hydroCHLOROthiazi de 320-12.5 MG 1 tablet Orally Once a day Active Valsartan-hydroCHLOROthiazi de 160-12.5 MG (Prior Auth#:[id number]) Oral for 30 Unknown Atorvastatin Calcium Active Valsartan Active Carvedilol Active Social History [...] Problem Status W/U Status Risk Notes Problem 917970510 Plantar flexed metatarsal bone of left foot (M21.6X2) Active confirmed Problem 8866573 Arthritis (M19.90) Active confirmed Vital Signs Height 5ft 11in in 03/12/2024 Weight 224 lbs 03/12/2024 BMI 31.24 kg/m2 03/12/2024 Blood pressure systolic 122 mm Hg 03/12/19 25 Blood pressure diastolic 70 mm Hg 025 Procedures Procedure Date Ordered Date Performed Result Body Sit e , B7480-SEKZI/INJECT, JOINT/BURSA 03/12/2024 N/A Encounters Encounter Location Date [facility] [address] [place] [address] 03/12/2024 Jany Black Pain in left ankle a nd joints of left foot M25.572 ; Arthritis M19.90 ; Plantar flexed metatarsal bone of left foot M21.6X2 ; 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 Joint, Bursa , In jection - sm/med joint bursa/capsule with 1cc of 1 percent Xylo.pl with 3mg Celestone Soluspan utilizing aseptic technique. The patient tolerated the procedure well. A dry sterile dressing was applied. Post injection instructions were dispensed, verbally discussed, and confirmed understood by the patient. I explained that a steroid and local anesthetic injection usually decreases pain and inflammation. I explained the possible complications including but not limited to signs/symptoms of steroid flare, change/deviation in toe position, infection, bruising, atrophy, discoloration of skin, and that additional injections may be necessary. Patient relates post-procedural pain assessment improved at ( 0-1) out of 10, LEFT, Patient relates post-procedural pain assessment improved at ( 0-1) out of 10 Progress Notes * Gilson MCPHERSON CDOB: (63 yo M)Acc No.[id number]:03/12/2024 Progress Note Patient:?Gilson MCPHERSON Provider:?Jany Nolasco DPM :1960???Age:63 Y???Sex:Male Jose Maria e:03/12/2024 Address:[address] [place], [place] [id number] Pcp:Selywn Lechuga MD Subjective: * Chief Complaints: * ???Foot pain * HPI: ???Foot Pain:?Nature:?aching, swelling, tenderness, throbbing.?Location:?, LEFT.?Duration:?2 month.?Onset:?sudden, unknown, denies trauma.?Course:?, intermittent.?Aggravated:?any pressure.?Treatments:?Rest/alter normal daily activity, 800mg Motrin, prednisone x 5 days, then 7 days.? * ROS:?General/Constitutional:?Nausea?denies.?Vomiting?denies.?Hunger Thirst?denies.?Loss appetite?denies.?Chills?denies.?Fatigue?denies.?Fever?denies.?Night Sweats?denies.?Unexplained weight loss?denies.?Unexplained [...] than smoking?Are you an other tobacco user??No ???Drugs/Alcohol:?Drugs?Have you used drugs other than those for medical reasons in the past 12 months??No ?Alcohol Screen?Did you have a drink containing alcohol in the past year??Yes ?Points?0 ?Interpretation?Negative ???Miscellaneous:?Caffeine: yes, frequency:. ?Children: yes, 2. ?Exercise: no. ?Marital status: . 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 * Medications:?TakingValsartan -hydroCHLOROthiazide 320-12.5 MG Tablet 1 tablet Orally Once a day Carvedilol Atorvastatin Calcium Valsartan Carvedilol Atorvastatin Calcium Taking Valsartan-hydroCHLOROthiazide 320-12.5 MG Tablet 1 tablet Orally Once a day Taking Carvedilol Taking Atorvastatin Calcium Taking Valsartan Taking Carvedilol Taking Atorvastatin Calcium UnknownValsartan-hydroCHLOROthiazide 160-12.5 MG Tablet (Prior Auth#:[id number]) Oral Medication List reviewed and reconciled with the patientUnknown Valsartan-hydroCHLOROthiazide 160-12.5 MG Tablet (Prior Auth#:[id number]) Oral Medication List reviewed and reconciled with the patient * Allergies:?N.K.D.A.yes[Aller gies Verified] Objective: * Vitals:?Ht: 5ft 11in, Wt:224 , BMI:31.24, Shoe size: 10.5-11, BP:122/70mm Hg, Ht- cm: 180.34 cm, Wt-k.6 kg. * Examination: ???General Examination: ?GENERAL APPEARANCE:?Reveals [...] end ROM no guarding noted (-) calor, no POP sesamoid bones, Plantar flexed 1st MTPJ evident left.?DIGITAL DEFORMITIES:?Digital contracture, PIPJ, 2-5 B/L, incompl-reducible with WB, or to push-up test, no over, nor underlapping.?FOOTWEAR:?innersoles show excessive wear at 1st MTPJ left.?Dermatologic: ?SKIN FINDINGS:?Skin shows sign(s) of,minor?inflammation (-) calor? (-)erythema.?Vascular: ?DP PULSES (B):?2/4, B/L.?PT [...] tarsal tunnel, miguel pedis, and medial calcaneal nerves.?X-Rays - IMAGING REPORT: ?Clinical Indication(s):? Evaluate for Fracture,?Evaluate for possible Gout.?Views:?3 views of Foot, AP, LAT, MOTaken by trainedPodiatric Money Examiner (TG_ ), Are reviewed with the Pt again.?Findings:? increase in soft tissue contour and density at the symptomatic site, radiolucent soft tissue gas absent.?HAV:?there is no Dimitris sign present in the 1st MTH.?Fracture:? Bipartite tibial sesamoid with irregular edges ? Fracture.?Signs of Osteomyelitis?Absent.? 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 b Plan: * Treatment: * Procedures:?Injection:?Sm. Joint, Bursa?62992, J0702 Injection - sm/med joint bursa/capsule with 1cc of 1 percent Xylo.pl with 3mg Celestone Soluspan utilizing aseptic technique. The patient tolerated the procedure well. A dry sterile dressing was applied. Post injection instructions were dispensed, verbally discussed, and confirmed understood by the patient. I explained that a steroid and local anesthetic injection usually decreases pain and inflammation. I explained the possible complications including but not limited to signs/symptoms of steroid flare, change/deviation in toe position, infection, bruising, atrophy, discoloration of skin, and that additional injections may be necessary. Patient relates post-procedural pain assessment improved at ( 0-1) out of 10, LEFT, Patient relates post-procedural pain assessment improved at ( 0-1) out of 10.? * Procedure Codes:?J0702 INJ B ETAMETHSN ACTAT&SOD [id number] DRAIN/INJECT, JOINT/BURSA, Modifiers: XS * Preventive Medicine:? ??Counseling:?Discussion:?-14: Office or other outpatient visit for the evaluation and management of an established patient, which required a medically appropriate history and/or examination and MODERATE level of DECISION MAKING for: 1 OR MORE CHRONIC PROBLEM(S) THATS WORSENING, 2 STABLE CHRONIC PROBLEMS, A NEWLY DIAGNOSED PROBLEM WITH UNCERTAIN PROGNOSIS, AN ACUTE COMPLICATED INJURY WITH MULTIPLE TREATMENT OPTIONS, OR AN ACUTE PROBLEM WITH ACCOMPANYING SYSTEMIC SYMPTOMS, THAT POSE(S) A MODERATE RISK OF MORBIDITY. THIS CONDITION MAY ALSO INCLUDE RX DRUG MANAGEMENT, OR A DECISON FOR MINOR SURGERY. The visit on the day of the [...] have encouraged the patient to call the office.?Arthritis:?The patient was counseled on the various etiologies for their Arthritis including genetic, history of injury or trauma, abnormal foot biomechanics leading to excessive joint wear, and use/overuse. We discussed the various treatment options from no treatment, to topical analgesics such as Biofreeze gel, Aspercream, Voltaren gel, Lidoderm patches, CBD oils, THC creams, and Custom-compounded topical cream preparations to natural oral products such as Glucosamine Sulfate/Chondroitin/MSM/Collegen to analgesic Tylenol, to anti-inflammatory medications such as Ibuprofen/Naproxen, and the use of oral steroids if needed. Cardiac, Kidney, and GI issues were discussed RE: potential complications of oral anti-inflammatories. We discussed several other treatment options consisting of accom shoes, supportive innersoles, AFO bracing/support, cortisone injection therapy, and surgical resection of the arthritic joint(s) or fusion reconstruction if necessary. We discussed the advantages and disadvantages of conservative (vs) surgical treamtents including pain relief, improved function/activities of daily life, return to exercise to failure, expense, systemic complications, infection, [id number], prolongued postop course. Patient questions re: the various treatment options available, their successes and potential failures, and longterm effects were discussed and the answers were verbally confirmed understood.?BioMech.:?I discussed the Pts foot biomechanics with them and how it relates to their problem.?Gout:?Discussed with the pt that i do not feel presently he is having an acute gout in the great toe..?Orthotics:?I explained to the patient the benefits of OT use. I explained that orthoses are medically necessary to decrease the foot pain through proper mechanical control, support of their foot, decrease pain under the painful metatarsal by supplementing the soft tissue. Pt states he just purchased a pair of Cart rite inserts-we discussed pt staring to wear them and the need for new shoes the present ones are very worn not providing support or structure to the foot.?Shoe Gear Counseling:?The patient and I reviewed the types of shoes they should be wearing. My recommendation included obtaining a well-fitted shoe with a good supportive, non-foldable nor twistable sole, plenty of toe/room for the forefoot, and proper arch support. Based on todays examination, I recommended the patient look for new shoes, by having their feet professionally measured. We discussed that generally the best time of the day for a shoe fitting is the afternoon. Different shoes types and brands to best match the patients occupation and vocation were discussed. Specific brand selection will be up to the patient, their individual foot condition/deformities, and fit. The patient and I reviewed the standard new shoe break in period by wearing them for a few hours a day while checking for redness or sores as wear time is increased. The patient verbally confirmed to understanding the information discussed.? * Follow Up:?, 4-6W * Images: * Sign off status: Completed true * Provider:?Jany Nolasco DPM Date:?2024 Generated for Kacie paniagua/Junaid/Dimasitting on:?05/02/2024 02:30 PM EST History and Physical Notes * HPI (History of Present Illness) Category Sub-Category Detail Notes Category Not es Foot Pain Nature: aching, swelling, tenderness , throbbing Location: , LEFT Duration: 2 month Onset: sudden, unknown, den ies trauma Course: , intermittent Aggravated: any pressure Treatments: Rest/alter normal da amaya activity, 800mg Motrin, prednisone x 5 days, then 7 days Examination Category Sub-Category Detail Notes Category Not es Neurological SENSORY: Neurological exa m reveals intact sensorium, pain sensation normal, vibration sensation intact, pinprick sensation is normal in the lower extremities, Pt denies, anesthesia, burning, paresthesia, tingling, B/L TINEL'S COMPRESSION: Negative tarsal alex edith, miguel pedis, and medial calcaneal nerves Dermatologic SKIN FINDINGS: Skin shows sign( s) of,minor inflammation (-) calor (-)erythema Orthopedic GAIT ABNORMALITY: antalgic BUNION: (+) Pain on palpatio n dorsal medial exosotosis ,mild inflammation present, pain at end ROM no guarding noted (-) calor, no POP sesamoid bones, Plantar flexed 1st MTPJ evident left FOOTWEAR: innersoles show exce ssive wear at [...] EDEMA (C): absent, B/L PIGMENTATION: normal, B/L X-Rays - IMAGING REPORT Findings: increase in soft tissue contour and density at the symptomatic site, radiolucent soft tissue gas absent Fracture: Bipartite tibial ses amoid with irregular edges ? Fracture Signs of Osteomyelitis Absent HAV: there is no Dimitris s ign present in the 1st MTH Views: 3 views of Foot, AP, LAT, MO Taken by trained Podiatric Money Examiner ( TG_ ), Are reviewed with the Pt again Clinical Indication(s): Evaluate for Fra cture, Evaluate for possible Gout
--- OUTSIDE RECORDS SUMMARY | 2024-05-02 19:32 | XMS_ITS ---
Author Organization [facility] Address [address] [place] [address] Care Team Providers Care Fire Protection Engineering Technician Name Role Phone Selwyn Lechuga MD Primary Care Provider Nishi Nolasco, Jany Unavailable [phone] REASON FOR VISIT referral Encounters Encounter Location Date Provider Diagnosis [facility] [address] [place] [address] 03/12/2024 Jany Nolasco Plan Of Treatment No Information Progress Notes * Gilson MCPHERSON CDOB: 1 (63 yo M)Acc No.[id number]:03/12/2024 Patient:?Gilson MCPHERSON :1960???Age:63 Y???Sex:Male Address:[address] [place] [address], [address] * true * Date:? Generated for Yamilai arcelia/Junaid/eTransmitting on:?05/02/2024 02:30 PM EST
== END 2024-05-02 14:56 | disposition home or self-care (01) ==
LOC: HO.LNP 14:55
PROVIDERS: Visit Provider Internal Medicine
DX: M79.675 Pain in left toe(s) (principal)
CPT/HCPCS: 84550

== ENCOUNTER 2024-06-18 10:33 | Outpatient (REF) | payer BC, SELFPAY ==
[2024-06-18 11:32] LABS: Estimated Average Glucose 117 mg/dL; Hemoglobin A1C 141.0754 umol/L; Hemoglobin A1c % 5.7 % (<6.0); Total Hemoglobin (HGBA1C) 3661.9284 umol/L
[2024-06-18 11:42] LABS: Alanine Aminotransferase 25 U/L (0-40); Albumin Level 4.4 g/dL (3.5-5.0); Alkaline Phosphatase 55 U/L (39-117); Aspartate Amino Transferase 30 U/L (5-37); Bilirubin Direct 0.2 mg/dL (0.0-0.5); Bilirubin Total 0.5 mg/dL (0.0-1.0); Cholesterol 158 mg/dL (<200); Glucose Fasting 113 mg/dL (60-99); HDL Cholesterol 52 mg/dL (>40); LDL Cholesterol Calculated 89 mg/dL (<100); Total Protein 6.8 g/dL (6.5-8.0); Triglycerides 85 mg/dL (<150)
--- OUTSIDE RECORDS SUMMARY | 2024-06-18 12:36 | XMS_ITS | Patient Health Record ---
Author Organization [facility] Address [address] [place] [address] Care Team Providers Care Atomizer Assembler Name Role Phone Alexandrea LOMELI, Selwyn Primary Care Provider Jany Chaudhari Unavailable [phone] Elias Partida Unavailable [phone] Allergies No Known Allergies Results Component Value Reference Range Notes X ray : Foot, right 3V Reviewed date:02/14/2024 05:57:28 PM Interpretation:See Examination above Performing Lab: Notes/Report: See Examination above Reason For Referral Diagnosis 1 Other viral warts (B 07.8) Diagnosis 2 Pain in right foot ( M79.671) Referring Provider First Name Selwyn Referring Provider Last Name Alexandrea [facility] Referred Provider Elias Partida Referred Address [address] [place], [place],[address], Referred Provider Specialty Podiatry Referral Priority Routine [...] Referring Provider Last Name Alexandrea Referred Organization [facility] Referred Provider Jany Nolasco Referred Address [address] [facility] [place],[address],[place] Referred Provider Specialty Podiatry Referral Priority Routine Medications Medication SIG (Take, Route, Frequency, Duration) Notes Start Date End Date Status Atorvastatin Calcium Active Valsartan-hydroCHLOROthiazi de 160-12.5 MG (Prior Auth#:[id number]) Oral for 30 Unknown Valsartan Active Carvedilol [...] Problem Status W/U Status Risk Notes Problem 9343486 Arthritis (M19.90) Active confirmed Problem 557652177 Plantar flexed metatarsal bone of left foot (M21.6X2) Active confirmed Problem Gout (39741763) Gout of right foot (M10.9) Active confirmed Rx drug management (4) Problem Essential hypertension (52488152) Essential hypertension (I10) Active confirmed Vital Signs Blood pressure diastolic 70 mm Hg 04/04/2024 Height 3eb56aw in 04/04/2024 Blood pressure systolic 122 mm Hg 04/04/2024 Weight 224 lbs 04/04/2024 BMI 31.24 kg/m2 04/04/2024 Procedures Procedure Date Ordered Date Performed Result Body Sit e , I4444-LVIGL/INJECT, JOINT/BURSA 03/12/2024 N/A Encounters Encounter Location Date Provider Diagnosis [address] [place] [address] 02/14/2024 Jany Nolasco Pain in joint involving right ankle and foot M25.571 ; Gout of right foot M10.9 ; Pain in joint involving left ankle and foot M25.572 and Closed fracture of sesamoid bone of right foot, initial encounter S92.811A [facility] [address] 03/12/2024 Jany Black Pain in left ankle a nd joints of left foot M25.572 ; Arthritis M19.90 ; Plantar flexed metatarsal bone of left foot M21.6X2 ; 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 [address] [address] 03/12/2024 Jany Black [address] [address] 03/12/2024 Jany Black [address] [address] 05/21/2024 Jany Black Assessments Encounter Date Diagnosis (ICD [...] Pending Test Test Name Order Date , J3510-AOEQW/INJECT, JOINT/BURSA 0 03/12/2024 Insurance Providers Payer Name Payer Address Payer Phone Subscriber Number Group Number Insured Name Patient Relationship to Insured Coverage Start Date Coverage End Date [facility] [address] [place] [address] [id number] Gilson Osei Self - patient is the insured Medical (General) History Medical History History ICD Code High blood pressure Warts Measles Mumps Chicken pox Joint implants/screws covid-19 screws in wrist Surgical History Surgery Date(Month/Year) wrist surgery 1999 knee surgery 2011
--- OUTSIDE RECORDS SUMMARY | 2024-06-18 12:36 | XMS_ITS | Patient Health Record ---
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 Name Role Phone Selwyn Lechuga Primary Care Provider Allergies Allergen (clinical drug ingredient) Drug/Non Drug Allergy documented on EMR Reaction Allergy Type Onset Date Status Lisinopril cough Drug Allergy Active Results Component Value Reference Range Notes Liver Panel (Not yet reviewe d by provider) Interpretation: Performing Lab:[facility], [address] [place] [phone] Notes/Report: Bilirubin Total 0.5 0.0-1.0 mg/dL Bilirubin Direct 0.2 0.0-0.5 mg/dL Aspartate Amino Transferase 30 5-37 U/L Alanine Aminotransferase 25 0-40 U/L Total Protein 6.8 6.5-8.0 g/dL Albumin Level 4.4 3.5-5.0 g/dL Alkaline Phosphatase 55 39-117 U/L Glucose Fasting (Not yet re viewed by provider) Interpretation: Performing Lab:[facility], [address] [place] [phone] Notes/Report: Glucose Fasting 113 60-99 mg/dL A fasting glucose from 100-125 mg/dl is considered impaired (pre-diabetes). Lipid Panel (Not yet reviewe d by provider) Interpretation: Performing Lab:[address] [phone] Notes/Report: Triglycerides 85 <150 mg/dL Desirable Triglyceride: less than 150 mg/dL Borderline High Triglyceride 150-199 mg/dL High Triglyceride: 200-499 mg/dL Very High Triglyceride: greater than or equal to 5OO mg/dL Cholesterol 158 <200 mg/dL Desirable Cholesterol: less than 200 mg/dL Borderline High Cholesterol: 200-239 mg/dL High Cholesterol: greater than 239 mg/dL LDL Cholesterol Calculated 89 <100 mg/dL Desirable LDL: less than 100 mg/dL Near Optimal/Above Optimal LDL: 110-129 mg/dL Borderline High LDL: 130-159 mg/dL High LDL: 160-189 mg/dL Very High LDL: greater than or equal to 190 mg/dL HDL Cholesterol 52 >40 mg/dL Desirable HDL: greater than 40 mg/dL Note: This HDL assay may give artificially low results in patients with liver disease. Hemoglobin A1c Reviewed date:06/18/2024 12:34:59 PM Interpretation: Performing Lab:[address] [phone] Notes/Report: Hemoglobin A1c % 5.7 <6.0 % Hemoglobin A1C Reference Range Adults: 4.8 - 6.0 % Non diabetic: < 6.0 % Goal: < 7.0 % Additional Action Suggested: > 8.0 % Note: Hemoglobin A1c results are invalid for patients with abnormal amounts of HbF. Blood transfusions may impact the HbA1c concentration in the patient sample. Estimated Average Glucose 117 eAG = Estimated average glucose which is %A1C expressed as average glucose, using the formula of the C5J-Nuqbclw Average Glucose study (ADAG), Diabetes Care, Vol.31,#8, 2007 Complete Blood Count Auto Di ff Reviewed date:12/14/2023 09:28:47 PM Interpretation: Performing Lab:[facility], [address] [place] [phone] Notes/Report: White Blood Count 7.5 4.8-10.8 X10*3/uL Red Blood Count 4.91 4.60-5.80 X10*6/uL Hemoglobin 14.4 14.0-18.0 g/dl Hematocrit 43.6 42.0-52.0 % Mean Corpuscular Volume 88.8 80.0-98.0 fL Mean Corpuscular Hemoglobin 29.3 27.0-33.0 pg Mean Corpuscular HGB Conc 33.0 31.0-36.0 g/dl Red Cell Distribution Width 12.5 11.0-16.0 % Platelet Count 210 160-400 X10*3/uL Mean Platelet Volume 10.7 9.4-12.4 fL Neutrophils Percent Auto 60.1 45-73 % Imm Gran Pct Auto 0.3 0.0-0.4 % Lymphocytes Percent Auto 29.3 20-40 % Monocytes Percent Auto 7.6 2-11 % Eosinophils Percent Auto 2.4 0-4 % Basophils Percent Auto 0.3 0-2 % NRBC Pct Auto 0.0 0.0-0.2 /100WBC Neutrophils Absolute Auto 4.5 2.0-8.3 x10*3/uL Imm Gran Abs Auto 0.02 0.00-0.03 X10*3/uL Lymphocytes Absolute Auto 2.2 1.2-4.9 X10*3/uL Monocytes Absolute Auto 0.6 0.1-1.2 X10*3/uL Eosinophils Absolute Auto 0.2 0.0-0.4 X10*3/uL Basophils Absolute Auto 0.0 0.0-0.2 X10*3/uL NRBC Abs Auto 0.000 0.0-0.012 X10*3/uL Comprehensive [place]. Panel Fa st Reviewed date:12/13/2023 06:45:52 PM Interpretation: Performing Lab:[facility], [address] [place] [phone] Notes/Report: Sodium 141 135-145 mmol/L Potassium 4.2 3.3-5.1 mmol/L Chloride 106 96-108 mmol/L Carbon Dioxide 29 22-29 mmol/L Anion Gap 10 12-20 Blood Urea Nitrogen 25 9-16 mg/dL Creatinine 1.31 0.5-1.4 mg/dL Estimated Glomerular Filt Rate 55 NOTE: For -Latvian individuals, multiply the result by 1.210. Chronic Kidney Disease: Estimated GFR < 60 mL/min/1.73m2 Severe Kidney Disease: Estimated GFR < 15 mL/min/1.73m2 Glucose Fasting 106 60-99 mg/dL A fasting glucose from 100-125 mg/dl is considered impaired (pre-diabetes). Calcium 9.3 8.4-10.2 mg/dL Bilirubin Total 0.6 0.0-1.0 mg/dL Aspartate Amino Transferase 25 5-37 U/L Alanine Aminotransferase 30 0-40 U/L Total Protein 7.0 6.5-8.0 g/dL Albumin Level 4.3 3.5-5.0 g/dL Alkaline Phosphatase 51 39-117 U/L Lipid Panel Reviewed date:12/13/2023 06:42:08 PM Interpretation: Performing Lab:[facility], [address] [place] [phone] Notes/Report: Triglycerides 99 <150 mg/dL Desirable Triglyceride: less than 150 mg/dL Borderline High Triglyceride 150-199 mg/dL High Triglyceride: 200-499 mg/dL Very High Triglyceride: greater than or equal to 5OO mg/dL Cholesterol 203 <200 mg/dL Desirable Cholesterol: less than 200 mg/dL Borderline High Cholesterol: 200-239 mg/dL High Cholesterol: greater than 239 mg/dL LDL Cholesterol Calculated 132 <100 mg/dL Desirable LDL: less than 100 mg/dL Near Optimal/Above Optimal LDL: 110-129 mg/dL Borderline High LDL: 130-159 mg/dL High LDL: 160-189 mg/dL Very High LDL: greater than or equal to 190 mg/dL HDL Cholesterol 52 >40 mg/dL Desirable HDL: greater than 40 mg/dL Note: This HDL assay may give artificially low results in patients with liver disease. PSA,Total (Free>4and<10) Reviewed date:12/13/2023 06:45:16 PM Interpretation: Performing Lab:[facility], [address] [place] [phone] Notes/Report: PSA,Total (Free>4and<10) 1.50 0.00-4.00 ng/mL A Free PSA was not performed: The percentage of Free PSA can be used to enhance the differentiation of prostate cancer from benign prostatic disease in subjects whose PSA levels are between 4.0 and 10.0 ng/mL. For subjects whose PSA levels are below 4.0 or above 10.0 ng/mL, the risk of prostate cancer is determined on the basis of the PSA alone. Therefore the % Free PSA is recommended only for those subjects whose PSA levels are between 4.0 and 10.0 ng/mL. PSA methodology: Garnett Alinity i Chemiluminescent Microparticle Immunoassay (CMIA) Microalbumin, Random Reviewed date:12/13/2023 06:45:26 PM Interpretation: Performing Lab:[address] [phone] Notes/Report: Creatinine Urine 176.07 Microalbumin Urine 82.0 Microalbum/Creatinine Ratio Ur 46.5 <30 ug/mg cr Albumin/Creatinine Ratio Reference Ranges: Normal: < 30 ug/mg creatinine Microalbuminuria: 30 - 300 ug/mg creatinine Clinical Albuminuria: > 300 ug/mg creatinine Hemoglobin A1c Reviewed date:12/13/2023 06:45:07 PM Interpretation: Performing Lab:[address] [phone] Notes/Report: Hemoglobin A1c % 5.6 <6.0 % Hemoglobin A1C Reference Range Adults: 4.8 - 6.0 % Non diabetic: < 6.0 % Goal: < 7.0 % Additional Action Suggested: > 8.0 % Note: Hemoglobin A1c results are invalid for patients with abnormal amounts of HbF. Blood transfusions may impact the HbA1c concentration in the patient sample. Estimated Average Glucose 114 eAG = Estimated average glucose which is %A1C expressed as average glucose, using the formula of the L4J-Rwhyxpj Average Glucose study (ADAG), Diabetes Care, Vol.31,#8, Sep. 2007 UA ClnCatch+Micro w/rflx Cul t Reviewed date:12/14/2023 09:28:16 PM Interpretation: Performing Lab:[facility], [address] [place] [phone] Notes/Report: Urine, Clean Catch Color Urine Yellow Appearance Urine Clear PH 5.5 5.0-9.0 Glucose Urine UA Negative Negative mg/dL Urine Blood Negative Negative Specific [place] - Urine 1.020 1.005-1.025 Urine Protein Trace Neg-Trace mg/dL Urine Ketones Negative Negative mg/dL Nitrite Urine Negative Negative Leukocyte Esterase Urine Negative Negative RBC Urine 0-2 0-2 /HPF WBC Urine 0-5 0-5 /HPF Squamous Epithelial Cell Urine 0-2 0-2 /HPF Bacteria Urine None Seen None Seen Hyaline Casts Urine 0-2 0-2 /LPF Occult Blood, Stool, Guaiac Reviewed date:12/18/2023 11:00:06 AM Interpretation:Negative Performing Lab: Notes/Report: Negative Occult Blood, Stool, Guaiac Neg Uric Acid Reviewed date:05/03/2024 12:12:07 PM Interpretation: Performing Lab:[facility], [address] [place] [phone] Notes/Report: Uric Acid 6.0 3.4-7.0 mg/dL US carotid duplex BI Reviewed date:02/02/2024 12:31:13 PM Interpretation: Performing Lab: Notes/Report: [address] [address] Ultrasound Report Signed Patient: Gilson Osei MR#: [id number] : 1960 Acct:[id number] Age/Sex: 63 / M ADM Date: 01/09/24 Loc: HO.US Attending Dr: Selwyn Lechuga MD Ordering Physician: Selwyn Lechuga MD Date of Service: 01/09/24 Procedure(s): US carotid duplex BI Accession Number(s): [id number] cc: Selwyn Lechuga MD EXAMINATION: US EXTRACRANIAL CAROTID DUPLEX, BILATERAL CLINICAL INFORMATION: Aortic atherosclerosis COMPARISON: None available. TECHNIQUE: Real-time ultrasound and Doppler techniques (integrating B-mode 2-D vascular images, Doppler spectral analysis and color-flow Doppler imaging) were utilized to interrogate the extracranial carotid arteries, the vertebral arteries and proximal subclavian arteries bilaterally. The degree of stenosis is determined by criteria similar to NASCET. FINDINGS: Right Side: 1. There is no significant atherosclerotic plaque seen in the bifurcation/proximal ICA region. 2. The common carotid artery PSV proximally is 102 cm/s and distally 96 cm/s. 3. The proximal internal carotid artery velocities are 65.2 cm/s systolic and 26.1 cm/s diastolic. 4. The proximal external carotid artery PSV is 95.3 cm/s. 5. The vertebral artery shows antegrade flow. 6. The subclavian artery waveforms are normal. Left Side: 1. There is no significant atherosclerotic plaque seen in the bifurcation/proximal ICA region. 2. The common carotid artery PSV proximally is 136 cm/s and distally 91.7 cm/s. 3. The proximal internal carotid artery velocities are 73.0 cm/s systolic and 25.8 cm/s diastolic. 4. The proximal external carotid artery PSV is 98.1 cm/s. 5. The vertebral artery shows antegrade flow. 6. The subclavian artery waveforms are normal. US/US carotid duplex BI IMPRESSION: 1. RIGHT: Normal right internal carotid artery without atherosclerotic plaque or hemodynamically significant stenosis. 2. LEFT: Normal left internal carotid artery without atherosclerotic plaque or hemodynamically significant stenosis. Electronically signed by: Sy Dumont MD 02/01/2024 03:52 PM [facility] Dictated By: Sy Dumont MD Signed By: <Electronically signed by Sy Dumont MD in OV> 02/01/24 1552 DD/ 1031 TD/TT: 01/09/24 1044 Supervisor Plate Pasting: [place] [id number] Ultrasound Report Signed Patient: Trever Osei MR#: [id number] : 1960 Acct:[id number] Age/Sex: 63 / M ADM Date: 01/09/24 Loc: . Attending Dr: Selwyn Lechuga MD Ordering Physician: Selwyn Lechuga MD Date of Service: 01/09/24 Procedure(s): US carotid duplex BI Accession Number(s): [id number] cc: Selwyn Lechuga MD EXAMINATION: US EXTRACRANIAL SHANKS TID DUPLEX, BILATERAL CLINICAL INFORMATION: Aortic atherosclerosis COMPARISON: None available. TECHNIQUE: Real-time ultrasound and Doppler techniques (integrating B-mode 2-D vascular images, Doppler spectral analysis and color-flow Doppler imaging) were utilized to interrog ate the extracranial carotid arteries, the vertebral arteries a nd proximal subclavian arteries bilaterally. The degree of stenosis i s determined by criteria similar to NASCET. FINDINGS: Right Side: 1. There is no significant atherosclerotic plaque seen in the bifurcation/proximal ICA region. 2. The common caroti d artery PSV proximally is 102 cm/s and distally 96 cm/s. 3. The proximal internal carotid artery velocities are 65.2 cm/s systolic and 26.1 cm /s diastolic. 4. The proximal external carotid artery PSV is 95.3 cm/s. 5. The vertebral art parul shows antegrade flow. 6. The subclavian artery waveforms are normal. Left Side: 1. There is no significant atherosclerotic plaque seen in the bifurcation/proximal ICA region. 2. The common caroti d artery PSV proximally is 136 cm/s and distally 91.7 cm/s. 3. The proximal internal carotid artery velocities are 73.0 cm/s systolic and 25.8 cm /s diastolic. 4. The proximal external carotid artery PSV is 98.1 cm/s. 5. The vertebral art parul shows antegrade flow. 6. The subclavian artery waveforms are normal. US/US carotid duplex BI IMPRESSION: 1. RIGHT: Normal rig ht internal carotid artery without atherosclerotic plaque or hemodynamically significant stenosis. 2. LEFT: Normal left internal carotid artery without atherosclerotic plaque or hemodynamically significant stenosis. Electronically stacy d by: Sy Dumont MD 02/01/2024 03:52 PM [facility] Dictated By: Sy Dumont MD Signed By: <Electronically signed by Sy Dumont MD in OV> 02/01/24 1552 DD/ 1031 TD/TT: 01/09/24 1044 Supervisor Plate Pasting: Elder Ortiz (Not yet reviewed by provider) Interpretation: Performing Lab:[facility], [address] [place] [phone] Notes/Report: Elder Ortiz See Note Specimen held untested for 24 hours; Call to request Chemistry testing. Reason For Referral No Information Medications Medication SIG (Take, Route, Frequency, Duration) Notes Start Date End Date Status Omeprazole 20 MG 1 capsule Orally Onc e a day 04/28/2014 Active Valsartan-hydroCHLOROthi azide 320-12.5 MG TAKE 1 TABLET BY MOUTH EVERY DAY Active Cialis 5 MG 1 tablet as needed Orally Once a day for 30 day(s) 12/18/2023 Active Carvedilol 12.5 MG take 1 tablet by kaleb th twice a day with food for 90 days Orally Twice a day Active Ibuprofen 800 MG TAKE 1 TABLET [...] TABLETS WITH OCCURRENCE OF ATRIAL FIBRILLATION Not-Taking Flecainide Acetate 50 MG 3 tabs Orally f or a fib for one time for 1 days Active Atorvastatin Calcium 10 MG take 1 tablet by mouth every day for 30 days Orally Once a day for 90 days Active Ibuprofen 200 MG 2 tablets as needed Orally every 6 hrs Not-Taking Albuterol Sulfate HFA 108 (90 Base) MCG/ACT 1 puff as needed Inhalation every 4 hrs for 30 days 07/05/2022 Active Immunizations Vaccine Route Administration Date Status [facility] Flu Vaccine IM Intramuscular 01/27/2014 Administered Flu Vaccine IM Intramuscular 12/25/2014 Administered Fluarix Quadrivalent IM Intramuscular 05/05/2016 Adminfina red TDaP IM Intramuscular 06/22/2016 Administered pt was given the vaccine at [facility]. Flu Vaccine IM Intramuscular 12/07/2016 Administered Fluarix Quadrivalent IM Intramuscular 12/13/2018 Adminfina red pt was given the vaccine at [facility]. Fluarix Quadrivalent IM Intramuscular 10/21/2019 Adminfina red [facility] Shingrix Unknown 10/21/2019 Administered [facility] Tetanus Unknown 06/22/2016 Administered Covid Vaccine Unknown 03/11/2020 Administered MODERNA Covid Vaccine Unknown 04/09/2020 Administered MODER[facility] Fluarix Quadrivalent IM Intramuscular 11/17/2020 Adminfina red SARS-COV-2 Moderna Unknown 12/25/2020 Administered Fluarix Quadrivalent IM Intramuscular 11/29/2021 Adminmaee red Fluarix Quadrivalent IM Intramuscular 11/04[facility]2022 [facility] 06/15/2018 Refused Tetanus Unknown 06/22/2016 Pending Social History Tobacco Use: Social History Observation Description Date Details (start date - stop date) Never Smoker NA - NA Tobacco Use/Smoking Question Answer Notes Patient is a nonsmoker Additional Findings: Tobacco Non-User Cu rrent non-smoker, currently using no form of tobacco Alcohol Screen Question Answer Notes Did you have a drink contain ing alcohol in the past year? Yes How often did you have a dri nk containing alcohol in the past year? 4 or more times a week (4 points) How many drinks did you have on a typical day when you were drinking in the past year? 1 or 2 drinks (0 point) How often did you have 6 or more drinks on one occasion in the past year? Never (0 point) Points 4 Interpretation Positive Problems Problem Type SNOMED Code ICD Code Onset Dates Problem Status W/U Status Risk Notes Problem Acid reflux (938223511) Acid reflux (K21.9) Active confirmed Problem 65677789 Prostatism (N40.0) Active confirmed Problem 305359775 Paroxysmal atria l fibrillation (I48.0) Active confirmed Problem 84114464 Atherosclerosis of aorta (I70.0) Active confirmed Problem 89521124 Essential hypertension (I10) Active confirmed Problem 4334639 Prediabetes (R73.09) Active confirmed Problem 893943762 Erectile dysfunction, unspecified erectile dysfunction type (N52.9) Active confirmed Problem 04529324 Sleep disorder (G47.9) Active confirmed Problem 02575370 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) Active confirmed Problem 4416303866637826 Acute gout of l eft foot, unspecified cause (M10.9) Active confirmed Problem 81740354 Plantar warts (B07.0) Active confirmed Vital Signs Blood pressure diastolic 76 mm Hg 05/02/2024 yanick ght is up 11 pounds since 02-08-24 Height 71.25 in 05/02/2024 weight is up 11 pounds since 02-08-24 Blood pressure systolic 132 mm Hg 05/02/2024 weig ht is up 11 pounds since 02-08-24 Weight 233 lbs 05/02/2024 weight is up 11 pounds since 02-08-24 BMI 32.27 kg/m2 05/02/2024 weight is up 11 pounds since 02-08-24 Encounters Encounter Location Date Provider Diagnosis Selwyn Lechuga MD [address] [place] [address] Drive [address] [place] [id number] 06/18/2024 Selwyn Lechuga Prediabetes R73.09 ; Atherosclerosis of aorta I70.0 and Erectile dysfunction, unspecified erectile dysfunction type N52.9 Selwyn Lechuga MD [address] [place] [address] Drive [address] [place] [id number] 12/12/2023 Selwyn Lechuga Blood tests for rout ine general physical examination Z00.00 ; Essential hypertension I10 and Prediabetes R73.09 Selwyn Lechuga MD [address] [place] [id number] 12/18/2023 Selwyn Lechuga Erectile dysfunction , unspecified erectile dysfunction type N52.9 ; Annual physical exam Z00.00 ; Paroxysmal atrial fibrillation I48.0 ; Atherosclerosis of aorta I70.0 ; Essential hypertension I10 ; Prediabetes R73.09 ; Acid reflux K21.9 ; Colon cancer screening Z12.11 and Depression screening Z13.31 Slewyn Lechgua MD [address] [place] [id number] 01/15/2024 Selwyn Lechuga Acute gout of left foot, unspecified cause M10.9 Selwyn Lechuga MD [address] [place] [id number] 01/19/2024 Selwyn Lechuga Acute gout of left foot, unspecified cause M10.9 Selwyn Lechuga MD [address] [place] [id number] 02/01/2024 Selwyn Lechuga Acute idiopathic gou t of right foot M10.071 Selwyn Lechuga MD [address] [place] [id number] 02/08/2024 Selwyn Lechuga Bunion, left M21.612 and Prostatism N40.0 Selwyn Lechuga MD [address] [place] [id number] 05/02/2024 Selwyn Lechuga Toe pain, left M79.6 75 Selwyn Lechuga MD [address] [place] [id number] 09/25/2023 Selwyn Lechuga MD [address] [place] [id number] 01/29/2024 Selwyn Lechuga MD [address] [place] [id number] 03/12/2024 Selwyn Lechuga Assessments Encounter Date Diagnosis (ICD Code) Assessment Notes Treatment Notes Treatment Clinical Notes Section Notes 06/18/2024 Prediabetes (ICD-10 - R73.09) 12/12/2023 Blood tests for routine general physical examination (ICD-10 - Z00.00) 12/12/2023 Essential hypertension (ICD-10 - I10) 12/18/2023 Erectile dysfunction, unspecified erectile dysfunction type (ICD-10 - N52.9) is havine side effects on viagra and wants to go on cialis daily 12/18/2023 Annual physical exam (ICD-10 - Z00.00) labs reviewed and discussed with patient 01/15/2024 Acute gout of left foot, unspecified cause (ICD-10 - M10.9) patient verbalized understanding of medication anddirections for use 01/19/2024 Acute gout of left foot, unspecified cause (ICD-10 - M10.9) patient verbalized understanding od medication ans directions for use 02/01/2024 Acute idiopathic gout of right foot (ICD-10 - M10.071) patient verbalized understanding of medication and directions for use 02/08/2024 Bunion, left (ICD-10 - M21.612) needs referral to dr wayne/ [facility]Ent will be calling to make his own appt. HIS APPT IS 03/05/24 AT 9AM, INSURANCE REFERRAL FAXED TO [facility] 02/08/2024 Prostatism (ICD-10 - N40.0) when he takes viagra sleeps through the night and his stream is better 05/02/2024 Toe pain, left (ICD-10 - M79.675) does not appear like gout to me but appears that he is getting a bunion 06/18/2024 Atherosclerosis of aorta (ICD-10 - I70.0) 12/12/2023 Prediabetes (ICD-10 - R73.09) 12/18/2023 Paroxysmal atrial fibrillation (ICD-10 - I48.0) is followed by cardiology at [facility] 06/18/2024 Erectile dysfunction, unspecified erectile dysfunction type (ICD-10 - N52.9) 12/18/2023 Atherosclerosis of aorta (ICD-10 - I70.0) 12/18/2023 Essential hypertension (ICD-10 - I10) stable, will continue current regiment 12/18/2023 Prediabetes (ICD-10 - R73.09) stable, no need for medication at this time 12/18/2023 Acid reflux (ICD-10 - K21.9) doing well, will continue current regiment 12/18/2023 Colon cancer screening (ICD-10 - Z12.11) guaiac negative 12/18/2023 Depression screening (ICD-10 - Z13.31) negative screen Plan Of Treatment Pending Test Test Name Order Date Electrocardiogram (EKG) 06/09/2017 Electrocardiogram (EKG) 05/01/2015 XR CHEST 2 VIEW PA & LAT 07/05/2022 US CAROTID BILATERAL DOPPLER 12/18/2023 Glucose Fasting 06/18/2024 Hold Gold 06/18/2024 Liver Panel 06/18/2024 Lipid Panel 06/18/2024 Next Appt Details Provider Name:Selwyn Coley ier, 06/25/2024 09:00:00 AM, [address] [place] [address], [address], [phone], Provider Name:Selwyn Coley ier, 12/12/2024 07:00:00 AM, [address] [place] [address], [phone], Provider Name:Selwyn Coley ier, 12/19/2024 08:00:00 AM, [address] [place] [address], [address], [phone], Insurance Providers Payer Name Payer Address Payer Phone Subscriber Number Group Number Insured Name Patient Relationship to Insured Coverage Start Date Coverage End Date [employer] [address] [place], [place] [id number] [phone] [id number] Gilson Osei Self - patient is the insured Medical (General) History Medical History History ICD Code colonosclopy 2012 neg due in 10 years back xray showed athersclerosis of aorta . discussed statins colonoscy 2022 negative
--- OUTSIDE RECORDS SUMMARY | 2024-06-18 12:36 | XMS_ITS ---
Author Organization [facility] Address [address] [place] [address] Care Team Providers Care Route Salesman Name Role Phone Selwyn Lechuga MD Primary Care Provider Nishi Nolasco, Jany Unavailable [phone] Allergies No Known Allergies REASON FOR VISIT Pcp-03/23, Foot pain Medications Medication SIG (Take, Route, Frequency, Duration) Notes Start Date End Date Status Atorvastatin Calcium Active Valsartan-hydroCHLOROthiazi de 160-12.5 MG (Prior Auth#:[id number]) Oral for 30 Unknown Atorvastatin Calcium Active [...] other tobacco user? No Vital Signs Height [id number] in 04/04/2024 Weight 224 lbs 04/04/2024 BMI 31.24 kg/m2 04/04/2024 Blood pressure systolic 122 mm Hg 04/04/19 25 Blood pressure diastolic 70 mm Hg 025 Encounters Encounter Location Date Provider Diagnosis [facility] [address] [place] [address] 04/04/2024 Jany Black Pain in left ankle [...] * Gilson MCPHERSON CDOB: (63 yo M)Acc No.[id number]:04/04/2024 Progress Notes Patient:?SARAYAKILGilson Provider:?Jany Nolasco DPM :1960???Age:63 Y???Sex:Male Jose Maria e:04/04/2024 Address:[address] [place], [place] [phone] Pcp:Selwyn Lechuga MD Subjective: * Chief Complaints: [...] ?Exercise: no. ?Marital status: . 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 * Medications:?TakingValsartan -hydroCHLOROthiazide 320-12.5 MG Tablet 1 tablet Orally Once a day Carvedilol Atorvastatin Calcium Valsartan Carvedilol Atorvastatin Calcium Taking Valsartan-hydroCHLOROthiazide 320-12.5 MG Tablet 1 tablet Orally Once a day Taking Carvedilol Taking Atorvastatin Calcium Taking Valsartan Taking Carvedilol Taking Atorvastatin Calcium UnknownValsartan-hydroCHLOROthiazide 160-12.5 MG Tablet (Prior Auth#:[id number]) Oral Medication List reviewed and reconciled with the patientUnknown Valsartan-hydroCHLOROthiazide 160-12.5 MG Tablet (Prior Auth#:[id number]) Oral Medication List reviewed and reconciled with the patient * Allergies:?N.K.D.A.yes[Aller gies Verified] Objective: * Vitals:?Ht: 3io23xy, Wt:224, BMI:31.24, Shoe size: 10.5-11, BP:122/70mm Hg, [...] Nolasco DPM Date:?2024 Generated for Kacie paniagua/Junaid/Claude on:?06/18/2024 12:36 PM EDT History and Physical Notes * HPI (History [...] noted (-) calor, AT 90 % less FOOTWEAR EVALUATION: innersoles show exc essive wear at 1st MTPJ left DIGITAL DEFORMITIES: [...]
--- OUTSIDE RECORDS SUMMARY | 2024-06-18 12:37 | XMS_ITS ---
Author Organization [facility] Address [address] [place] [address] Care Team Providers Care Superintendent Radio Communications Name Role Phone Selwyn Lechuga MD Primary Care Provider Jany Chaudhari [phone] REASON FOR VISIT Cx 05/23 appt Encounters Encounter Location Date Provider Diagnosis [address] [address] 05/21/2024 Jany Nolasco Plan Of Treatment No Information Progress Notes * Gilson MCPHERSON CDOB: (63 yo M)Acc No.[id number]:05/21/2024 Patient:?Gilson MCPHERSON :1960???Age:63 Y???Sex:Male Address:[address] [place] [address], [address] * true * Date:? Generated for Printi ng/Faxing/eTransmitting on:?06/18/2024 12:37 PM EDT
--- OUTSIDE RECORDS SUMMARY | 2024-06-18 12:37 | XMS_ITS ---
Author Organization [facility] Address [address] [place] [address] Care Team Providers Care Human Services Instructor Name Role Phone Selwyn Lechuga MD Primary Care Provider Jany Chaudhari [phone] Encounters Encounter Location Date Provider Diagnosis [address] [address] 05/23/2024 Jany Nolasco Plan Of Treatment No Information Progress Notes * Gilson MCPHERSON CDOB: (64 yo M)Acc No.[id number]:05/23/2024 Progress Note Patient:?Gilson MCPHERSON Provider:?Jany Nolasco DPM :1960???Age:63 Y???Sex:Male Jose Maria e:05/23/2024 Address:[address] [place], [place] [phone] Pcp:Selwyn Lechuga MD Subjective: * Chief Complaints: * ??? * Medical History:? Objective: * Vitals:? Assessment: Plan: * Treatment: * Images: * The named appointment provid er may or may not be the originator of this progress note, and it is not deemed complete until electronically signed by the appointment provider. Sign off status: Pending * Provider:?Jany Nolasco DPM Date:?2024 Generated for Yamilai ng/Faxing/eTransmitting on:?06/18/2024 12:36 PM EDT
--- OUTSIDE RECORDS SUMMARY | 2024-06-18 12:37 | XMS_ITS ---
Author Organization Selwyn Lechuga MD Address [address] [place] [phone] Care Team Providers Care Artificial Breeding Distributor Name Role Phone Selwyn Lechuga Primary Care Provider [phone] REASON FOR VISIT ins referral Encounters Encounter Location Date Provider Diagnosis Selwyn Lechuga MD [facility] [address] [place] [phone] 03/12/2024 Selwyn Lechuga Plan Of Treatment Next Appt Details Provider Name:Selwyn Coley ier, 06/25/2024 09:00:00 AM, [address] [place] [address], [address] [place] [address], [phone], Provider Name:Selwyn Coley ier, 12/12/2024 07:00:00 AM, [address] [place] [address], [address], [phone], Provider Name:Selwyn Coley iecorrina, 12/19/2024 08:00:00 AM, [address] [place] [address], [address], [phone], Progress Notes * Gilson MCPHERSON CDOB: 1 (63 yo M)Acc No.[id number]:03/12/2024 Patient:?BowentristanGilson :1960???Age:63 Y???Sex:Male Address:[address] [place] [address] * true * Date:? Generated for Kacie paniagua/Junaid/eTransmitting on:?06/18/2024 12:36 PM EDT
--- OUTSIDE RECORDS SUMMARY | 2024-06-18 12:37 | XMS_ITS ---
Author Organization Selwyn Lechuga MD Address [address] [place], [place] [phone] Care Team Providers Care Maintenance Assistant Name Role Phone Selwyn Lechuga Primary Care Provider [phone] Allergies Allergen (clinical drug ingredient) Drug/Non Drug Allergy documented on EMR Reaction Allergy Type Onset Date Status Lisinopril cough Drug Allergy Active Results Component Value Reference Range Notes Uric Acid Reviewed date:05/03/2024 12:12:07 PM Interpretation: Performing Lab:[facility], [address] [place] [phone] Notes/Report: Uric Acid 6.0 3.4-7.0 mg/dL REASON [...] Location Date Provider Diagnosis Selwyn Lechuga MD [address] [place] [address] Drive [address] [place], [place] [phone] 05/02/2024 Selwyn Lechuga Toe pain, left M79.675 [...] appears that he is getting a bunion Next Appt Details Provider Name:Selwyn stephens, 06/25/2024 09:00:00 AM, [address] [place] [address], [address], [place], [place], [phone], Provider Name:Selwyn stephens, 12/12/2024 07:00:00 AM, [address] [place] [address], [address], [place], [place], [phone], Provider Name:Selwyn stephens, 12/19/2024 08:00:00 AM, [address], [address], [place], [place], [phone], Progress Notes * Gilson MCPHERSON CDOB: (63 yo M)Acc No.[id number]:05/02/2024 Progress Notes Patient:?Gilson MCPHERSON Provider:?Selwyn Lechuga MD :1960???Age:63 Y???Sex:Male Jose Maria e:05/02/2024 Address:[address] [place], [place] [id number] Subjective: * Chief Complaints: * ???Left foot pain ? gout * HPI: ???Symptom(s):?patient is a 63 yo male here with complaint of pain in left first metatarsal. flared a few days ago. and started NSAID/ last time it lasted a month. went to [facility] and got a cortisone shot and it [...] puff as needed Inhalation every 4 hrs Flecainide Acetate 50 MG Tablet 3 tabs Orally for a fib for one time Atorvastatin Calcium 10 MG Tablet take 1 tablet by mouth every day for 30 days Orally Once a day Cialis 5 MG Tablet 1 tablet as needed Orally Once a day Carvedilol 12.5 MG Tablet take 1 tablet by mouth twice a day with food for 90 days Orally Twice a day Omeprazole 20 MG Capsule Delayed Release 1 capsule Orally Once a day Valsartan-hydroCHLOROthiazide 320-12.5 MG Tablet TAKE 1 TABLET BY MOUTH EVERY DAY Ibuprofen 800 MG Tablet TAKE 1 TABLET BY MOUTH EVERY 8 HOURS WITH FOOD OR MILK NEEDED Taking Albuterol Sulfate HFA 108 (90 Base) MCG/ACT Aerosol Solution 1 puff as needed Inhalation every 4 hrs Taking Flecainide Acetate 50 MG Tablet 3 tabs Orally for a fib for one time Taking Atorvastatin Calcium 10 MG Tablet take 1 tablet by mouth every day for 30 days Orally Once a day Taking Cialis 5 MG Tablet 1 tablet as needed Orally Once a day Taking Carvedilol 12.5 MG Tablet take 1 tablet by mouth twice a day with food for 90 days Orally Twice a day Taking Omeprazole 20 MG Capsule Delayed Release 1 capsule Orally Once a day Taking Valsartan-hydroCHLOROthiazide 320-12.5 MG Tablet TAKE 1 TABLET BY MOUTH EVERY DAY Taking Ibuprofen 800 MG Tablet TAKE 1 TABLET BY MOUTH EVERY 8 HOURS WITH FOOD OR MILK NEEDED Not-Taking/PRNpredniSONE 10 MG Tablet 1 tablet with food or milk Orally 4 tabs for 3 days,3tabs for 3 days, 2 tabs for 3 days, and 1 tab for 3 days Flecainide Acetate 50 MG Tablet TAKE 3 TABLETS WITH OCCURRENCE OF ATRIAL FIBRILLATION Ibuprofen 200 MG Tablet 2 tablets as needed Orally every 6 hrs Medication List reviewed and reconciled with the patientNot-Taking/PRN predniSONE 10 MG Tablet 1 tablet with food or milk Orally 4 tabs for 3 days,3tabs for 3 days, 2 tabs for 3 days, and 1 tab for 3 days Not-Taking/PRN Flecainide Acetate 50 MG Tablet TAKE 3 TABLETS WITH OCCURRENCE OF ATRIAL FIBRILLATION Not-Taking/PRN Ibuprofen 200 MG Tablet 2 tablets as needed Orally every 6 hrs Medication List reviewed and reconciled with the patient * Allergies:?Lisinopril: cough yes[Allergies Verified] Objective: * Vitals:?Ht: 71.25, Wt: 233, BMI:32.27, BP:132/76, Wt-k.69. weight is up 11 pounds since 02-08-24. * Examination: ???General Examination: ?GENERAL APPEARANCE:?alert, well hydrated, in no distress.?EXTREMITIES:?abnormal with swelling of first metatarsal with minimal pain.? Assessment: * Assessment: 1.?Toe pain, left - M79.675 (Primary)??? Plan: * Treatment: * Procedure Codes:?56290 VENIP UNCT, ROUTINE* * * Sign off status: Completed true * Provider:?Selwyn Lechuga MD Date:?0 05/02/2024 Generated for Printi ng/Faxing/eTransmitting on:?06/18/2024 12:37 PM EDT History and Physical Notes * HPI (History of Present Illness) Category Sub-Category Detail Notes Category Not es Symptom(s) patient is a 63 yo male here with complaint of pain in left first metatarsal. flared a few days ago. and started NSAID/ last time it lasted a month. went to [facility] and got a cortisone shot and it was wonderful for a month Examination Category Sub-Category Detail Notes Category Not es General Examination GENERAL APPEARANCE: alert, w ell hydrated, in no distress EXTREMITIES: abnormal with swelli ng of first metatarsal with minimal pain
--- OUTSIDE RECORDS SUMMARY | 2024-06-18 12:37 | XMS_ITS ---
Author Organization Selwyn Lechuga MD Address [address] [place], [place] [phone] Care Team Providers Care Chrome Plater Name Role Phone Selwyn Lechuga Primary Care Provider Results Component Value Reference Range Notes Liver Panel (Not yet reviewe d by provider) Interpretation: Performing Lab:[facility], [address] [place] [phone] Notes/Report: Bilirubin Total 0.5 0.0-1.0 mg/dL Bilirubin Direct 0.2 0.0-0.5 mg/dL Aspartate Amino Transferase 30 5-37 U/L Alanine Aminotransferase 25 0-40 U/L Total Protein 6.8 6.5-8.0 g/dL Albumin Level 4.4 3.5-5.0 g/dL Alkaline Phosphatase 55 39-117 U/L Glucose Fasting (Not yet re viewed by provider) Interpretation: Performing Lab:[facility], [address] [place] [phone] Notes/Report: Glucose Fasting 113 60-99 mg/dL A fasting glucose from 100-125 mg/dl is considered impaired (pre-diabetes). Lipid Panel (Not yet reviewe d by provider) Interpretation: Performing Lab:[facility], [address] [place] [phone] Notes/Report: Triglycerides 85 <150 mg/dL Desirable Triglyceride: [...] A1c Reviewed date:06/18/2024 12:34:59 PM Interpretation: Performing Lab:[facility], [address] [place] [phone] Notes/Report: Hemoglobin A1c % 5.7 <6.0 % [...] average glucose, using the formula of the R8E-[place]sc[place] Average Glucose study (ADAG), Diabetes Care, Vol.31,#8, Sep. 2007 REASON FOR VISIT LIVER, LIPID PANEL Encounters Encounter Location Date Provider Diagnosis Selwyn Lechuga MD [address] [place] [address] Drive [address] [place], [place] [phone] 06/18/2024 Selwyn Lechuga Prediabetes R73.09 ; Atherosclerosis of aorta I70.0 and Erectile dysfunction, unspecified erectile dysfunction type N52.9 Assessments Encounter Date Diagnosis (ICD Code) Assessment Notes Treatment Notes Treatment Clinical Notes Section Notes 06/18/2024 Prediabetes (ICD-10 - R73.09) 06/18/2024 Atherosclerosis of aorta (ICD-10 - I70.0) 06/18/2024 Erectile dysfunction, unspecified erectile dysfunction type (ICD-10 - N52.9) Plan Of Treatment Pending Test Test Name Order Date Glucose Fasting 06/18/2024 Liver Panel 06/18/2024 Lipid Panel 06/18/2024 Next Appt Details Provider Name:Selwyn Coley ier, 06/25/2024 09:00:00 AM, [address], [address], [place], [place], [phone], Provider Name:Selwyn Coley ier, 12/12/2024 07:00:00 AM, [address], [address], [place], [place], [phone], Provider Name:Selwyn Coley ier, 12/19/2024 08:00:00 AM, [address], [address], [place], [place], [phone], Progress Notes * Gilson MCPHERSON CDOB: (64 yo M)Acc No.[id number]:06/18/2024 Progress Note Patient:?Gilson MCPHERSON Rebecca Provider:?Selwyn Lechuga MD :1960???Age:64 Y???Sex:Male Jose Maria e:06/18/2024 Address:[address] [place], [place] [phone] Subjective: * Chief Complaints: * ???1. LIVER, LIPID PANEL. * Medical History:? Objective: * Vitals:? Assessment: * Assessment: 1.?Prediabetes - R73.09 (Shelbie jimy)???2.?Atherosclerosis of aorta - I70.0???3.?Erectile dysfunction, unspecified erectile dysfunction type - N52.9??? Plan: * Treatment: 2.?Atherosclerosis of aorta?LAB: Glucose Fasting (Collection Date & Time - 06/18/2024 07:15 AM) ?LAB: Hemoglobin A1c (Collection Date & Time - 06/18/2024 07:15 AM) 3.?Erectile dysfunction, uns pecified erectile dysfunction type?LAB: Liver Panel (Collection Date & Time - 06/18/2024 07:15 AM) ?LAB: Lipid Panel (Collection Date & Time - 06/18/2024 07:15 AM) * Procedure Codes:?43562 VENIP UNCT, ROUTINE* * * The named appointment provid er may or may not be the originator of this progress note, and it is not deemed complete until electronically signed by the appointment provider. Sign off status: Pending * Provider:?Selwyn Lechuga MD Date:?0 06/18/2024 Generated for Kacie paniagua/Junaid/Dimasitting on:?06/18/2024 12:36 PM EDT
== END 2024-06-18 10:34 | disposition home or self-care (01) ==
LOC: HO.LNP 10:33
PROVIDERS: Visit Provider Internal Medicine
DX: N52.9 Male erectile dysfunction, unspecified (principal); R73.03 Prediabetes; I70.0 Atherosclerosis of aorta; Z12.5 Encounter for screening for malignant neoplasm of prostate
CPT/HCPCS: 80061; 80076; 82947; 83036

== ENCOUNTER 2024-12-05 11:09 | Outpatient (REF) | payer BC, SELFPAY ==
[2024-12-05 11:13] LABS: MANUAL DIFF FLAG NO
[2024-12-05 11:46] LABS: Appearance Urine Clear; Glucose Urine UA Negative (Negative); PH 6.5 (5.0-9.0); Specific Gravity - Urine 1.020 (1.005-1.025)
[2024-12-05 11:57] LABS: Hematocrit 42.5 % (42.0-52.0); Hemoglobin 13.9 g/dl (14.0-18.0); Imm Gran Abs Auto 0.02 X10*3/uL (0.00-0.03); Imm Gran Pct Auto 0.3 % (0.0-0.4); Lymphocytes Absolute Auto 2.2 X10*3/uL (1.2-4.9); Mean Corpuscular HGB Conc 32.7 g/dl (31.0-36.0); Mean Corpuscular Hemoglobin 28.8 pg (27.0-33.0); Mean Corpuscular Volume 88.0 fL (80.0-98.0); NRBC Abs Auto 0.000 X10*3/uL (0.0-0.012); NRBC Pct Auto 0.0 /100WBC (0.0-0.2); Platelet Count 189 X10*3/uL (160-400); Red Blood Count 4.83 X10*6/uL (4.60-5.80); White Blood Count 7.0 X10*3/uL (4.8-10.8)
[2024-12-05 12:01] LABS: Alanine Aminotransferase 25 U/L (0-40); Albumin Level 4.5 g/dL (3.5-5.0); Alkaline Phosphatase 56 U/L (39-117); Anion Gap 10 (12-20); Aspartate Amino Transferase 30 U/L (5-37); Blood Urea Nitrogen 33 mg/dL (9-16); Calcium 9.2 mg/dL (8.4-10.2); Carbon Dioxide 31 mmol/L (22-29); Chloride 107 mmol/L (96-108); Cholesterol 134 mg/dL (<200); Estimated Glomerular Filt Rate 60; HDL Cholesterol 41 mg/dL (>40); Potassium 4.4 mmol/L (3.3-5.1); Sodium 144 mmol/L (135-145); Total Protein 6.7 g/dL (6.5-8.0); Triglycerides 102 mg/dL (<150)
[2024-12-05 12:19] LABS: Microalbum/Creatinine Ratio Ur 7.4 ug/mg cr (<30)
[2024-12-05 12:28] LABS: PSA,Total (Free>4and<10) 1.48 ng/mL (0.00-4.00)
[2024-12-05 16:48] LABS: Hemoglobin A1C 149.1561 umol/L
== END 2024-12-05 11:10 | disposition home or self-care (01) ==
LOC: HO.LNP 11:09
PROVIDERS: Visit Provider Internal Medicine
DX: Z00.00 Encounter for general adult medical examination without abnormal findings (principal); I70.0 Atherosclerosis of aorta; I10 Essential (primary) hypertension; R73.03 Prediabetes; N40.0 Benign prostatic hyperplasia without lower urinary tract symptoms; Z12.5 Encounter for screening for malignant neoplasm of prostate
CPT/HCPCS: 80053; 80061; 81001; 82043; 82570; 83036; 84153; 85025

== ENCOUNTER 2025-01-16 13:00 | Outpatient (REF) | payer BC, SELFPAY ==
[2025-01-16 13:19] LABS: Blood Urea Nitrogen 31 mg/dL (9-16)
== END 2025-01-16 13:01 | disposition home or self-care (01) ==
LOC: HO.LNP 13:00
PROVIDERS: Visit Provider Internal Medicine
DX: Z00.00 Encounter for general adult medical examination without abnormal findings (principal)
CPT/HCPCS: 84520